=== PATIENT | female | born 1945 | race Caucasian/White ===

== ENCOUNTER → 2017-11-06 | Outpatient (CLI) | payer OTHER ==
[~2017-11-06] MED LIST: ALBUAER2 INH; AMR2 PO; ASPI81TA28 PO; ATEN-173 PO; ESTR1CRE PV; FURO-85 PO; GLCSR500 PO; GLIM4TAB PO; HYDR25TA5 PO; INSUINJ3 SC; INSUINJ34 SC; LATA0.5S OPB; LISI40TA PO; LORA0.5T12 PO; MONT1TAB5 PO; NITR0.4S UT; NRN100 PO; PLV75 PO; POLY150C12 PO; PRAM0.1212 PO; SITA100T3 PO
== END | disposition home or self-care (01) ==
LOC: C.LAB1850 13:24
PROVIDERS: ATTEND Nurse Practitioner Family
DX: E11.65 Type 2 diabetes mellitus with hyperglycemia (principal)

== ENCOUNTER → 2018-01-14 | Outpatient (CLI) | payer OTHER ==
[~2018-01-14] MED LIST changes: +ASCO1CAP3 PO; +CHOL1POW32 PO; +CLOP1TAB15 PO; +COEN1CAP28 PO; +CYAN500T PO; +DIGE1CAP10 PO; +FERR1TAB13 PO; +FLUT1INH7 INH; +KETOCONAZOLE 2% TOP; +LATA0.009 OP; +LISI-729 PO; +MAGN400T6 PO; +MBXC PO; +MULT-506 PO; +NVLGI7030 SC; +PROBCAP2 PO; +PYRI100T4 PO; +RANI150T3 PO; +TRIA1SPR10 NAE; +[UNRECOGNIZED DRUG - OTHER] PR
--- NOTE | 2018-01-14 15:42 | DIAGNOSTIC IMAGING REPORT ---
MRI OF THE BRAIN WITHOUT CONTRAST CLINICAL HISTORY: WORSENING TREMORS REST IS-LIKE SYNDROME COMPARISON STUDY: 07/12/2016 FINDINGS: Sagittal T1, axial diffusion, proton density and T2 weighted axial, coronal FLAIR, and axial T1-weighted images were acquired. No intra or extra-axial mass lesions are visualized Axial diffusion-weighted images reveal no evidence of acute or subacute infarction. There is no evidence of ventricular dilatation. Proton density T2-weighted and FLAIR images reveal scattered foci of increased T2 signal within the white matter, likely on a small vessel basis. 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 There is an old left cerebellar lacunar infarct. There are no abnormal flow voids. There is a focus of increased T2 signal within the right mastoid, likely on an inflammatory basis IMPRESSION: 1. No acute intracranial findings 2. No evidence of intracranial mass on this noncontrast study. 3. No evidence of acute or subacute infarction 4. Stable white matter disease and lacunar infarcts 5. Presumed small inflammatory focus within the right mastoid. Electronically signed by: Epifanio Coronel M.D. 01/14/2018 3:41 PM Dictated Date/Time: 01/14/2018 3:38 PM
== END | disposition home or self-care (01) ==
LOC: C.MRI 14:51
PROVIDERS: ATTEND Family Medicine
DX: G25.9 Extrapyramidal and movement disorder, unspecified (principal); R90.82 White matter disease, unspecified

== ENCOUNTER 2018-01-16 10:35 | Emergency (ER) | payer OTHER ==
[~2018-01-16] VITALS: Ht 147.3 cm; Wt 81.0 kg
[~2018-01-16 10:35] MED LIST changes: -ASCO1CAP3 PO; -CHOL1POW32 PO; -CLOP1TAB15 PO; -COEN1CAP28 PO; -CYAN500T PO; -DIGE1CAP10 PO; -FERR1TAB13 PO; -FLUT1INH7 INH; -KETOCONAZOLE 2% TOP; -LATA0.009 OP; -LISI-729 PO; -MAGN400T6 PO; -MBXC PO; -MULT-506 PO; -NVLGI7030 SC; -PROBCAP2 PO; -PYRI100T4 PO; -RANI150T3 PO; -TRIA1SPR10 NAE; -[UNRECOGNIZED DRUG - OTHER] PR
[2018-01-16 10:41] VITALS: TEMP 36.7; Ht 147.3 cm; Wt 81.0 kg
[2018-01-16] MEDS ORDERED: hydrOXYzine HCL 25 MG TAB PO STA (10:55)
--- NOTE | 2018-01-16 11:02 | EMERGENCY ROOM VISIT NOTE ---
History Report prepared by Wes: Kenneth Guerra Under the Supervision of: Dr. Alonso Arias D.O. First contact with patient: 10:46 Chief Complaint: LEG PAIN,LEG INJURY Stated Complaint: SHAKEY, RESTLESS LEG SYMDRONE History of Present Illness The patient is a 72 year old female who presents to the Emergency Room with complaints of worsening restless legs for the past few months. She states that last night she got up to make tea, and she felt so wobbly that she was going to collapse. The patient states that she has been falling out of her bed, chair, and sofa. The patient denies any back pain, chest pain, shortness of breath, nausea, and vomiting. She notes that she has been hyperventilating while shaking. The patient states that she has had an MRI of her head, and they did not find anything. She reports that she has taken Neurontin and Mirapex, and they initially were helping the symptoms, though she states that she stopped taking them since they were no longer helping. She also notes that she has taken lorazepam which has not helped. The patient notes that she has been getting minimal sleep due to the shaking. Source of History: patient Onset: a few months ago Position: leg Quality: other (shaking) Timing: worsening Associated Symptoms: No chest pain, No SOB, No nausea, No vomiting, No back pain Review of Systems See HPI for pertinent positives & negatives. A total of 10 systems reviewed and were otherwise negative. Past Medical & Surgical Medical Problems: (1) Anemia (2) CAD (coronary artery disease) (3) Restless leg syndrome Family History Patient reports no known family medical history. Social History Smoking Status: Never Smoker Drug Use: none Occupation Status: retired Current/Historical Medications Scheduled Ascorbic Acid (Vitamin C), 1 CAP PO HS Aspirin (Aspirin Ec), 81 MG PO 1400 Cholecalciferol (Bulk) (Vitamin D3), 4 CAP PO UD Clopidogrel (Plavix), 75 MG PO PM Coenzyme Q10 (Ubidecarenone) (Co Q10), 200 MG PO 1200 Cyanocobalamin (Vitamin B-12), 500 MCG PO 1200 Digestive Enzymes (Digestive Enzyme), 500 MG PO TID Fluticasone Furoate-Vilanterol (Breo Ellipta 200-25 Mcg/INH), 1 PUFF INH QAM Furosemide (Lasix), 20 MG PO HS Gabapentin (Gabapentin), 300 MG PO TID Insulin Aspart 70/30 (Novolog Mix 70/30), 46 UNIT SC BREAKFAST Insulin Aspart 70/30 (Novolog Mix 70/30), 50 UNIT SC SUPPER Latanoprost (Xalatan 0.005% Oph Sigrid), 1 DROP OPB QAM Lisinopril (Prinivil), 1.5 TABS PO QAM Magnesium Oxide (Mag-Ox), 400 MG PO BID Metformin HCl (Metformin HCl ER), 500 MG PO BID Montelukast Sodium (Montelukast Sodium), 1 TAB PO HS Multivitamin (Multivitamin), 1 TAB PO QAM Polysaccharide Iron Complex (Poly-Iron 150), 300 MG PO HS Pramipexole (Mirapex), 0.125 MG PO ACHS Probiotic Product (Florajen3), 1 CAP PO QAM Pyridoxine (Vitamin B6), 200 MG PO QAM [Premarin Vg Cm], 0.5 GM ID 2-3 TIMES PER WEEK Scheduled PRN Albuterol (Ventolin Hfa), 2 PUFFS INH Q4 PRN for Wheezing Lorazepam (Lorazepam), 0.5 MG PO DAILY PRN for Anxiety Triamcinolone Acetonide (Nasal (Nasal Allergy 24 Hour), 2 SPRAYS SHORTY DAILY PRN for Allergic Reaction [Ketoconazole 2% Cm], 1 APPLN TOP DAILY PRN for DRYNESS Allergies Coded Allergies: Cefaclor (Verified Allergy, Mild, RASH, 01/16/18) Dipyridamole (Verified Allergy, Mild, HIVES, 01/16/18) HEACHACHES Penicillins (Verified Allergy, Mild, RASH, 01/16/18) Primidone (Verified Allergy, Mild, RASH, 01/16/18) DIZZINESS Cetirizine (Verified Allergy, Unknown, Dizziness, 01/16/18) Simvastatin (Verified Allergy, Unknown, ANAPHYLAXIS, 01/16/18) Sulfa Antibiotics (Verified Allergy, Unknown, RASH, 01/16/18) Prednisone (Unverified Adverse Reaction, Intermediate, UNKNOWN, 01/16/18) Physical Exam Vital Signs Date Time Temp Pulse Resp B/P (MAP) Pulse Ox O2 Delivery O2 Flow Rate FiO2 01/16/18 14:25 89 20 165/82 99 01/16/18 13:58 89 24 151/68 99 Room Air 01/16/18 12:28 81 22 143/78 100 Room Air 01/16/18 12:17 76 01/16/18 10:41 36.7 87 20 139/77 98 Room Air Physical Exam GENERAL: Patient is awake, alert, and in no acute distress. Patient is anxious appearing EYES: The conjunctivae are clear. The pupils are round and reactive. EARS, NOSE, MOUTH AND THROAT: The nose is without any evidence of any deformity. Mucous membranes are moist tongue is midline NECK: The neck is nontender and supple. RESPIRATORY: Normal respiratory effort is noted there is no evidence of wheezing rhonchi or rales CARDIOVASCULAR: Regular rate and rhythm noted there no murmurs rubs or gallops normal S1 normal S2 GASTROINTESTINAL: The abdomen is soft. Bowel sounds are present in all quadrants. Abdomen is nontender BACK: No midline tenderness or or step-off noted range of motion in flexion extension as well as rotation no signs of muscle spasm noted MUSCULOSKELETAL/EXTREMITIES: There is no evidence of gross deformity full range of motion is noted in the hips and shoulders SKIN: There is no obvious evidence of any rash. There are no petechiae, pallor or cyanosis noted. NEUROLOGIC: Patient is awake alert and oriented x3 strength is symmetric patellar reflexes are 2+ bilaterally Medical Decision & Procedures Laboratory Results 01/16/18 11:45 Red Blood Count 4.04, Mean Corpuscular Volume 89.1, Mean Corpuscular Hemoglobin 30.2, Mean Corpuscular Hemoglobin Concent 33.9, Mean Platelet Volume 9.2, Neutrophils (%) (Auto) 69.6, Lymphocytes (%) (Auto) 20.2, Monocytes (%) (Auto) 8.7, Eosinophils (%) (Auto) 0.9, Basophils (%) (Auto) 0.3, Neutrophils # (Auto) 4.57, Lymphocytes # (Auto) 1.33, Monocytes # (Auto) 0.57, Eosinophils # (Auto) 0.06, Basophils # (Auto) 0.02 01/16/18 11:45 Test 01/16/18 11:27 01/16/18 11:45 Urine Color YELLOW Urine Appearance CLEAR (CLEAR) Urine pH 6.5 (4.5-7.5) Urine Specific [place] 1.018 (1.000-1.030) Urine Protein TRACE (NEG) Urine Glucose (UA) NEG (NEG) Urine Ketones NEG (NEG) Urine Occult Blood NEG (NEG) Urine Nitrite NEG (NEG) Urine Bilirubin NEG (NEG) Urine Urobilinogen NEG (NEG) Urine Leukocyte Esterase TRACE (NEG) Urine WBC (Auto) 1-5 /hpf (0-5) Urine RBC (Auto) 0-4 /hpf (0-4) Urine Hyaline Casts (Auto) 0 /lpf (0-5) Urine Epithelial Cells (Auto) >30 /lpf (0-5) Urine Bacteria (Auto) NEG (NEG) White Blood Count 6.57 K/uL (4.8-10.8) Red Blood Count 4.04 M/uL (4.2-5.4) Hemoglobin 12.2 g/dL (12.0-16.0) Hematocrit 36.0 % (37-47) Mean Corpuscular Volume 89.1 fL (80-100) Mean Corpuscular Hemoglobin 30.2 pg (25-34) Mean Corpuscular Hemoglobin Concent 33.9 g/dl (32-36) Platelet Count 222 K/uL (130-400) Mean Platelet Volume 9.2 fL (7.4-10.4) Neutrophils (%) (Auto) 69.6 % Lymphocytes (%) (Auto) 20.2 % Monocytes (%) (Auto) 8.7 % Eosinophils (%) (Auto) 0.9 % Basophils (%) (Auto) 0.3 % Neutrophils # (Auto) 4.57 K/uL (1.4-6.5) Lymphocytes # (Auto) 1.33 K/uL (1.2-3.4) Monocytes # (Auto) 0.57 K/uL (0.11-0.59) Eosinophils # (Auto) 0.06 K/uL (0-0.5) Basophils # (Auto) 0.02 K/uL (0-0.2) RDW Standard Deviation 46.7 fL (36.4-46.3) RDW Coefficient of Variation 14.2 % (11.5-14.5) Immature Granulocyte % (Auto) 0.3 % Immature Granulocyte # (Auto) 0.02 K/uL (0.00-0.02) Anion Gap 8.0 mmol/L (3-11) Est Creatinine Clear Calc Drug Dose 40.3 ml/min Estimated GFR () 55.4 Estimated GFR (Non- 47.8 BUN/Creatinine Ratio 30.6 (10-20) Calcium Level 9.6 mg/dl (8.5-10.1) Magnesium Level 2.1 mg/dl (1.8-2.4) Total Bilirubin 0.3 mg/dl (0.2-1) Direct Bilirubin < 0.1 mg/dl (0-0.2) Aspartate Amino Transf (AST/SGOT) 38 U/L (15-37) Alanine Aminotransferase (ALT/SGPT) 81 U/L (12-78) Alkaline Phosphatase 50 U/L (45-117) Total Protein 7.3 gm/dl (6.4-8.2) Albumin 4.2 gm/dl (3.4-5.0) Thyroid Stimulating Hormone (TSH) 1.340 uIu/ml (0.300-4.500) Laboratory results per my review. Medications Administered Medications (Trade) Dose Ordered Sig/Ryley Route Start Time Stop Time Status Last Admin Dose Admin Hydroxyzine HCl (Vistaril Tab) 25 mg NOW STAT PO 01/16/18 10:55 01/16/18 10:56 DC 01/16/18 11:06 25 MG ED Course 1046: The patient was evaluated in room B5. A complete history and physical examination were performed. 1055: Vistaril Tab 25mg PO 1409: Upon reevaluation, the patient is doing well. I discussed the results and treatment plan with her. She verbalized agreement of the treatment plan. She was discharged home. Medical Decision Differential diagnosis: Etiologies such as metabolic, infection, hypo/hyperglycemia, electrolyte abnormalities, cardiac sources, intracerebral event, toxicologic, neurologic, as well as others were entertained. Nursing notes reviewed. The patient is a 72-year-old female who has been suffering with restless legs for some months. She presented to the emergency department today because symptoms are worsening. The patient was treated with Vistaril in the emergency department. She was reevaluated multiple times. I discussed patient's laboratory results with her. I discussed her case with the emergency department lining caser. I recommended that she have her appointment moved up with neurology but they were unable to give her an earlier appointment. Neurology recommended that she follow-up with her primary care physician first. I discussed this with the patient. She was encouraged to continue all medications as prescribed. Currently she stopped taking her medications for restless legs. She is also encouraged to follow-up with her family doctor as well. Medication Reconcilliation Current Medication List: was personally reviewed by me Blood Pressure Screening Patient's blood pressure: Elevated blood pressure Blood pressure disposition: Elevated BP felt to be situational Impression Primary Impression: Restless legs Scribe Attestation The scribe's documentation has been prepared under my direction and personally reviewed by me in its entirety. I confirm that the note above accurately reflects all work, treatment, procedures, and medical decision making performed by me. Departure Information Dispostion Home / Self-Care Referrals Jayleen Reid D.O. (PCP) Forms HOME CARE DOCUMENTATION FORM, IMPORTANT VISIT INFORMATION Patient Instructions My [facility], Restless Legs Syndrome What Do Additional Instructions Continue all medications as prescribed. Rest and avoid any strenuous activity. Follow-up with the neurologist as scheduled. Return to the emergency department if symptoms worsen. Consider following up with your family doctor
[2018-01-16] MEDS ORDERED: CLOP1TAB15 PO (11:17)
[2018-01-16] MEDS ORDERED: LISI-729 PO (11:17)
[2018-01-16] MEDS ORDERED: COEN1CAP28 PO (11:18)
[2018-01-16] MEDS ORDERED: FERR1TAB13 PO (11:40)
[2018-01-16] MEDS ORDERED: FLUT1INH7 INH (11:40)
[2018-01-16] MEDS ORDERED: CHOL1POW32 PO (11:40)
[2018-01-16] MEDS ORDERED: RANI150T3 PO (11:40)
[2018-01-16] MEDS ORDERED: LATA0.009 OP (11:40)
[2018-01-16] MEDS ORDERED: CYAN500T PO (11:40)
[2018-01-16] MEDS ORDERED: PYRI100T4 PO (11:40)
[2018-01-16] MEDS ORDERED: NVLGI7030 SC ×2 (11:40)
[2018-01-16] MEDS ORDERED: TRIA1SPR10 NAE (11:40)
[2018-01-16] MEDS ORDERED: KETOCONAZOLE 2% TOP (11:40)
[2018-01-16] MEDS ORDERED: [UNRECOGNIZED DRUG - OTHER] PR (11:40)
[2018-01-16] MEDS ORDERED: ASCO1CAP3 PO (11:40)
[2018-01-16] MEDS ORDERED: MBXC PO (11:40)
[2018-01-16] MEDS ORDERED: DIGE1CAP10 PO (11:40)
[2018-01-16] MEDS ORDERED: MULT-506 PO (11:54)
[2018-01-16] MEDS ORDERED: PROBCAP2 PO (11:54)
[2018-01-16 11:56] LABS: BASO % 0.3 %; BASO ABS # 0.02 K/uL (0-0.2); EOS % 0.9 %; EOS ABS # 0.06 K/uL (0-0.5); HEMOGLOBIN 12.2 g/dL (12.0-16.0); IG# 0.02 K/uL (0.00-0.02); LYMPH % 20.2 %; LYMPH ABS # 1.33 K/uL (1.2-3.4); MEAN CELL VOLUME 89.1 fL (80-100); MEAN CORPUSCULAR HEMOGLOBIN 30.2 pg (25-34); MEAN CORPUSCULAR HGB CONC 33.9 g/dl (32-36); MEAN PLATELET VOLUME 9.2 fL (7.4-10.4); MONO % 8.7 %; MONO ABS # 0.57 K/uL (0.11-0.59); NEUT % 69.6 %; NEUT ABS # 4.57 K/uL (1.4-6.5); PLATELET COUNT 222 K/uL (130-400); RED CELL DISTRIBUTION WIDTH CV 14.2 % (11.5-14.5); RED CELL DISTRIBUTION WIDTH SD 46.7 fL (36.4-46.3); WHITE BLOOD COUNT 6.57 K/uL (4.8-10.8)
[2018-01-16 12:10] LABS: ALBUMIN 4.2 gm/dl (3.4-5.0); ALT/SGPT 81 U/L (12-78); AST/SGOT 38 U/L (15-37); BLOOD UREA NITROGEN 35 mg/dl (7-18); CALCIUM 9.6 mg/dl (8.5-10.1); CARBON DIOXIDE 24 mmol/L (21-32); CREATININE 1.15 mg/dl (0.60-1.20); GLUCOSE 94 mg/dl (70-99); POTASSIUM 4.2 mmol/L (3.5-5.1); SODIUM 139 mmol/L (136-145)
[2018-01-16] MEDS ORDERED: MAGN400T6 PO (12:12)
[2018-01-16 12:20] LABS: ALKALINE PHOSPHATASE 50 U/L (45-117); TOTAL PROTEIN 7.3 gm/dl (6.4-8.2)
[2018-01-16 14:25] VITALS: BP 165/82; PULSE 89; O2SAT 99
== END 2018-01-16 14:30 | disposition home or self-care (01) ==
LOC: C.EDB 10:38
DX: G25.81 Restless legs syndrome (principal); D64.9 Anemia, unspecified; I25.10 Atherosclerotic heart disease of native coronary artery without angina pectoris; Z79.82 Long term (current) use of aspirin; Z79.899 Other long term (current) drug therapy; Z79.01 Long term (current) use of anticoagulants; Z88.0 Allergy status to penicillin; Z88.2 Allergy status to sulfonamides; Z88.8 Allergy status to other drugs, medicaments and biological substances; Z88.1 Allergy status to other antibiotic agents

== ENCOUNTER → 2018-01-27 | Outpatient (CLI) | payer OTHER ==
[~2018-01-27] MED LIST changes: -AMR2 PO; +ASCO1CAP3 PO; -ATEN-173 PO; +CHOL1POW32 PO; +CLOP1TAB15 PO; +COEN1CAP28 PO; +CYAN500T PO; +DIGE1CAP10 PO; -ESTR1CRE PV; +FLUT1INH7 INH; -GLIM4TAB PO; -HYDR25TA5 PO; -INSUINJ3 SC; -INSUINJ34 SC; +KETOCONAZOLE 2% TOP; +LISI-729 PO; -LISI40TA PO; +MAGN400T6 PO; +MULT-506 PO; -NITR0.4S UT; +NVLGI7030 SC; -PLV75 PO; +PROBCAP2 PO; +PYRI100T4 PO; -SITA100T3 PO; +TRIA1SPR10 NAE; +[UNRECOGNIZED DRUG - OTHER] PR
[2018-01-27 13:13] LABS: BASO % 0.4 %; BASO ABS # 0.03 K/uL (0-0.2); EOS ABS # 0.07 K/uL (0-0.5); HEMATOCRIT 34.9 % (37-47); HEMOGLOBIN 11.8 g/dL (12.0-16.0); IG# 0.02 K/uL (0.00-0.02); LYMPH ABS # 1.49 K/uL (1.2-3.4); MEAN CORPUSCULAR HEMOGLOBIN 30.1 pg (25-34); MEAN CORPUSCULAR HGB CONC 33.8 g/dl (32-36); MEAN PLATELET VOLUME 9.3 fL (7.4-10.4); MONO % 5.8 %; MONO ABS # 0.41 K/uL (0.11-0.59); NEUT % 71.5 %; NEUT ABS # 5.08 K/uL (1.4-6.5); PLATELET COUNT 281 K/uL (130-400); RED CELL DISTRIBUTION WIDTH CV 14.2 % (11.5-14.5); RED CELL DISTRIBUTION WIDTH SD 46.4 fL (36.4-46.3)
[2018-01-27 13:56] LABS: ALT/SGPT 68 U/L (12-78); AST/SGOT 31 U/L (15-37); BLOOD UREA NITROGEN 37 mg/dl (7-18); CALCIUM 9.2 mg/dl (8.5-10.1); CARBON DIOXIDE 23 mmol/L (21-32); CREATININE 1.25 mg/dl (0.60-1.20); GLUCOSE 108 mg/dl (70-99); SODIUM 141 mmol/L (136-145)
[2018-01-27 14:00] LABS: ALKALINE PHOSPHATASE 56 U/L (45-117); TOTAL PROTEIN 7.3 gm/dl (6.4-8.2)
== END | disposition home or self-care (01) ==
LOC: C.LAB1850 11:44
PROVIDERS: ATTEND Physician Assistant
DX: R25.1 Tremor, unspecified (principal); R26.9 Unspecified abnormalities of gait and mobility; R20.2 Paresthesia of skin; G25.81 Restless legs syndrome; D64.9 Anemia, unspecified

== ENCOUNTER → 2018-04-22 | Outpatient (CLI) | payer OTHER ==
--- NOTE | 2018-04-22 12:49 | DIAGNOSTIC IMAGING REPORT ---
LUMBAR SPINE W/O CONTRAST HISTORY: Pain. Neuropathy. M54.5 TECHNIQUE: Multiplanar multisequence MRI of the lumbar spine was performed without the use of contrast. COMPARISON: None. FINDINGS: For the purpose of the report the L5-S1 disc space will be located on axial image 27 of 30. Moderate degenerative disc changes throughout. L1-L2: No significant central canal or neural foraminal narrowing. L2-L3: No significant central canal or neural foraminal narrowing. L3-L4: Moderate multifactorial narrowing of spinal canal. Mild broad-based disc herniation. Moderate narrowing of the neuroforamina bilaterally. L4-L5: Mild multifactorial narrowing of spinal canal. Mild narrowing neuroforamina bilaterally. L5-S1: No significant central canal or neural foraminal narrowing. IMPRESSION: 1. Moderate multifactorial narrowing of the spinal canal and neural foramina at L3-L4. 2. Mild multifactorial narrowing of the spinal canal at L4-L5. The above report was generated using voice recognition software. It may contain grammatical, syntax or spelling errors. Electronically signed by: Andres Mijares M.D. 04/22/2018 11:30 AM Dictated Date/Time: 04/22/2018 11:17 AM
--- NOTE | 2018-04-22 14:12 | DIAGNOSTIC IMAGING REPORT ---
L-SPINE MIN 4 VIEWS ROUTINE CLINICAL HISTORY: Low back pain COMPARISON STUDY: No previous studies for comparison. FINDINGS: No fractures are visualized. There are no erosive or destructive changes. There are degenerative changes with disc space narrowing most pronounced at the L3-4 and L4-5 levels. There is lower lumbar facet joint arthropathy. IMPRESSION: 1. Degenerative change 2. No fractures subluxations or destructive lesions are visualized. Electronically signed by: Epifanio Coronel M.D. 04/22/2018 11:00 AM Dictated Date/Time: 04/22/2018 10:59 AM
== END | disposition home or self-care (01) ==
LOC: C.MRIBC 09:56
PROVIDERS: ATTEND Psychiatry & Neurology Neurology
DX: M54.5 Low back pain (principal); M99.73 Connective tissue and disc stenosis of intervertebral foramina of lumbar region

== ENCOUNTER 2019-05-18 04:48 | Inpatient (IN) ==
--- NOTE | 2019-05-03 08:48 | History & Physical Report ---
Date of Service May 03, 2019 date of surgery: 05-18-19 Assessment & Plan (1) Osteoarthritis of left knee: Risks and benefits of procedure discussed in detail today, patient would like to proceed with a Left total knee replacement at [facility] as scheduled. will obtain medical clearance from Dr Reid and cardiac clearance from Dr Torres prior to surgery as well as obtain PATs at [facility]. Will resume the ASA 81mg po bid and Plavix post-op. f/u 2 weeks post op for routine post-operative care and x-ray, sooner if having any problems. will make arrangements for HHPT at the time of discharge. At this point in time, has failed conservative measures and would like to proceed with surgical intervention. History of Present Illness Chief Complaint: left knee pain Primary Care Provider: Jayleen Reid DO Ms Bella is a 73 year old female who complains of left knee pain, presents for pre-op evaluation prior to a left total knee replacement at [facility] on 05-18-19. She presents with pain, crepitus, decreased rom and stiffness on the left side. She states that the symptoms have been chronic non-traumatic and the pain occurs constantly with intermittent worsening. Currently the patient states that the symptoms are moderate-severe. The pain is described as aching, sharp and throbbing. The symptoms occur continuously. The symptoms are aggravated by daily activities, ascending stairs, descending stairs, first steps while awake, weight bearing and walking. Grace states that the symptoms are relieved by no specific activity. In addition to left knee pain the patient is also experiencing crepitus, decreased mobility, joint pain, instability, limping, loss of motion, pain after activity and stiffness. Prior pain medications include Tylenol. Pt. is on Plavix and ASA therapy which limits her NSAID use. She has been treated with Pt. has had Visco in the past with minimal relief on the left side. She has had Pt. ambulates with a cane. Patient has had previous therapy. Allergies Allergy/AdvReac Type Severity Reaction Status Date / Time cefaclor Allergy Mild RASH Verified 04/21/19 15:32 dipyridamole Allergy Mild HIVES Verified 04/21/19 15:32 Penicillins Allergy Mild RASH Verified 04/21/19 15:32 primidone Allergy Mild RASH Verified 04/21/19 15:32 cetirizine Allergy Unknown Dizziness Verified 04/21/19 15:32 Cipro Allergy Unknown Joint pain Unverified 05/20/18 10:49 ciprofloxacin Allergy Unknown Joint pain Verified 04/21/19 15:32 simvastatin Allergy Unknown ANAPHYLAXIS Verified 04/21/19 15:32 Sulfa (Sulfonamide Allergy Unknown RASH Verified 04/21/19 15:32 Antibiotics) prednisone AdvReac Intermediate UNSURE IF Verified 04/21/19 15:32 IT AFFECTED BREATHING OR HEART Home Medications Home Medications Medication Instructions Recorded Confirmed Type albuterol sulfate HFA 90 2 puffs INH Q6H PRN 08/17/18 04/21/19 History mcg/actuation aerosol inhaler ascorbic acid (vitamin C) 500 mg 500 mg PO QPM cap 08/17/18 04/21/19 History capsule aspirin 81 mg tablet,delayed 81 mg PO QDL 08/17/18 04/21/19 History release cholecalciferol (vitamin D3) 1,000 1,000 units PO DAILY 08/17/18 04/21/19 History unit capsule clopidogrel 75 mg tablet 75 mg PO QDD 08/17/18 04/21/19 History conjugated estrogens 0.625 mg/gram 1 applic VAGINAL DAILY PRN gm 08/17/18 04/21/19 History vaginal cream digestive enzymes capsule 1 cap PO QAM 08/17/18 04/21/19 History furosemide 20 mg tablet 20 mg PO QDD 08/17/18 04/21/19 History ketoconazole 2 % topical cream 1 appln TOP DAILY PRN 08/17/18 04/21/19 History latanoprost 0.005 % eye drops 1 drops OP QAM 08/17/18 04/21/19 History lisinopril 5 mg tablet 7.5 mg PO QAM 08/17/18 04/21/19 History lorazepam 0.5 mg tablet 0.5 mg PO DAILY PRN 08/17/18 04/21/19 History magnesium 400 mg (as magnesium 400 mg PO BID cap 08/17/18 04/21/19 History oxide) capsule metformin 500 mg tablet 500 mg PO BID 08/17/18 04/21/19 History montelukast 10 mg tablet 10 mg PO QPM 08/17/18 04/21/19 History multivitamin tablet 1 tab PO QAM 08/17/18 04/21/19 History novolog V-Go system 1 dose SC DIRECTED PRN 08/17/18 04/21/19 History coQ10 (ubiquinol) 200 mg PO QDL 04/21/19 04/21/19 History insulin aspart U-100 [Novolog 1 sliding scale dose SUBCUT 04/21/19 04/21/19 History U-100 Insulin aspart] USEASDIRECTD PRN ipratropium bromide 0.5 mg INHALATION Q6H PRN 04/21/19 04/21/19 History nitroglycerin 0.4 mg SUBLINGUAL DIRECTED 04/21/19 04/21/19 History polysaccharide iron complex 300 mg PO HS 04/21/19 04/21/19 History [Poly-Iron] triamcinolone acetonide [Nasacort] 2 spray INTRANASAL QAM 04/21/19 04/21/19 History pramipexole 1 mg tablet 1 mg PO BID 30 Days #60 tab 04/30/19 Rx Past Med/Surg History Medical History Anemia (Chronic ~09/2007) Asthma (Chronic) Chronic kidney disease (Chronic) Coronary artery disease (Chronic) s/p multiple PCIs with BMS (pt "feels she would have an allergy to JAKE" per cardiology). s/p CABG 2015 (GALINDO-LAD, SVG-OM2, SVG-RCA) GERD (gastroesophageal reflux disease) (Chronic) Glaucoma (Chronic) Hypercholesterolemia (Chronic) Hypertension (Chronic) Restless leg syndrome (Chronic) Bee sting allergy WASP Chronic diastolic CHF (congestive heart failure) Diabetes mellitus, type 2 IDDM LBBB (left bundle branch block) or wide IVCD per cardio. Surgical History History of cholecystectomy (Chronic) History of hysterectomy (Chronic) History of lumpectomy of left breast (Chronic) Hx of CABG (Chronic) 2016 [facility] X 3 VESSELS History of cardiac cath 2004 AND 2005 - [facility] X3 TOTAL STENTS; 2014 [facility] X3 STENTS Hx of section Hx of left cataract extraction Hx of right cataract extraction Social History Preferred Language: Israeli Communication Ability: Effective Beliefs That Will Affect Care: None Current Living Situation: Spouse current occupational status: retired Feels Safe at Home: Yes Smoking Status: Never smoker Do You Dip or Chew Tobacco: No ; Second Hand Exposure: Yes (SOCIALLY) ; Hx Alcohol Use: No Hx Substance Use: No Review of Systems Review of Systems: All systems reviewed & are unremarkable except as noted in HPI & below Constitutional: no fever, no chills and no sweats Respiratory: no cough and no dyspnea Cardiovascular: no chest pain, no dyspnea and no orthopnea Gastrointestinal: no abdominal pain, no nausea and no vomiting Musculoskeletal: as per Subjective / HPI Physical Exam Physical Exam: Ht: 4ft 9in Wt: 80.29kg BP: 150/74 Pulse: 72 Constitutional: WD/WN, vitals as above no acute distress Respiratory: normal respiratory effort, lungs clear to auscultation no respiratory distress, no labored breathing and does not use accessory muscles Cardiovascular: RRR, no murmur, no edema Gastrointestinal (Abdomen): normal bowel sounds, soft, nontender, no hepatosplenomegaly Musculoskeletal: Left Knee Physical Exam: She ambulates with a limp, there is no erythema, warmth, ecchymosis or atrophy noted, +1 effusion, greatest tenderness over the medial joint line and anterior knee joint. negative patellar apprehension , mild crepitation with motion, rick's negative, posterior drawer negative. positive mcmurrays medially, negative anterior drawer, knee stable with valgus/varus stress. no extensor lag. pain with active range of motion, AROM 0/5/105, Passive ROM 0/3/115. No pain with active/passive ROM of ankle. Lower Extremity Strength normal. Lower Extremity Neuro-vascular is normal Results & Data Diagnostic Findings Left Knee X-ray from 04/19/19 confirms degenerative changes to the left knee, with narrowing of the medial and patellofemoral joint, showing joint space narrowing, osteophyte formation and subchondral sclerosis. no acute bony pathology noted.
--- NOTE | 2019-05-03 09:00 | PAT Medication Instructions ---
Medication Instructions Date of Service May 03, 2019 Home Medications Medication Instructions Recorded pramipexole 1 mg tablet 1 mg PO BID 30 Days #60 tab 04/30/19 albuterol sulfate HFA 90 mcg/actuation aerosol inhaler 2 puffs INH Q6H PRN ascorbic acid (vitamin C) 500 mg capsule 500 mg PO QPM aspirin 81 mg tablet,delayed release 81 mg PO QDL cholecalciferol (vitamin D3) 1,000 unit capsule 1,000 units PO DAILY clopidogrel 75 mg tablet 75 mg PO QDD conjugated estrogens 0.625 mg/gram vaginal cream 1 applic VAGINAL DAILY PRN digestive enzymes capsule 1 cap PO QAM furosemide 20 mg tablet 20 mg PO QDD ketoconazole 2 % topical cream 1 appln TOP DAILY PRN latanoprost 0.005 % eye drops 1 drops OP QAM lisinopril 5 mg tablet 7.5 mg PO QAM lorazepam 0.5 mg tablet 0.5 mg PO DAILY PRN magnesium 400 mg (as magnesium oxide) capsule 400 mg PO BID metformin 500 mg tablet 500 mg PO BID montelukast 10 mg tablet 10 mg PO QPM multivitamin tablet 1 tab PO QAM novolog V-Go system 1 dose SC DIRECTED PRN coQ10 (ubiquinol) 200 mg PO QDL [Novolog U-100 Insulin aspart] 1 sliding scale dose SUBCUT USEASDIRECTD PRN ipratropium bromide 0.5 mg INHALATION Q6H PRN nitroglycerin 0.4 mg SUBLINGUAL DIRECTED polysaccharide iron complex [Poly-Iron] 300 mg PO HS triamcinolone acetonide [Nasacort] 2 spray INTRANASAL QAM pramipexole 1 mg tablet 1 mg PO BID ASK your prescriber and surgeon clopidogrel 75 mg tablet 75 mg PO QDD *MUST BE HELD FOR AT LEAST 7 DAYS FOR SPINAL ANESTHESIA (PREFERRED) STOP taking 2 weeks before surgery coQ10 (ubiquinol) 200 mg PO QDL STOP taking 24 hours before surgery conjugated estrogens 0.625 mg/gram vaginal cream 1 applic VAGINAL DAILY PRN ketoconazole 2 % topical cream 1 appln TOP DAILY PRN pramipexole 1 mg tablet 1 mg PO BID DO NOT take the morning of surgery cholecalciferol (vitamin D3) 1,000 unit capsule 1,000 units PO DAILY digestive enzymes capsule 1 cap PO QAM magnesium 400 mg (as magnesium oxide) capsule 400 mg PO BID metformin 500 mg tablet 500 mg PO BID multivitamin tablet 1 tab PO QAM [Novolog U-100 Insulin aspart] 1 sliding scale dose SUBCUT USEASDIRECTD PRN -- DO NOT BOLUS Take morning of surgery With a small sip of water, OTHERWISE NOTHING TO EAT OR DRINK AFTER MIDNIGHT: albuterol sulfate HFA 90 mcg/actuation aerosol inhaler 2 puffs INH Q6H PRN (if needed, and bring with you to the hospital) aspirin 81 mg tablet,delayed release 81 mg PO QDL latanoprost 0.005 % eye drops 1 drops OP QAM lorazepam 0.5 mg tablet 0.5 mg PO DAILY PRN (if needed) ipratropium bromide 0.5 mg INHALATION Q6H PRN (if needed) nitroglycerin 0.4 mg SUBLINGUAL DIRECTED (if needed) triamcinolone acetonide [Nasacort] 2 spray INTRANASAL QAM *CONTINUE INSULIN PUMP AT BASAL RATE AND DO NOT BOLUS* Take evening before surgery albuterol sulfate HFA 90 mcg/actuation aerosol inhaler 2 puffs INH Q6H PRN (if needed) ascorbic acid (vitamin C) 500 mg capsule 500 mg PO QPM clopidogrel 75 mg tablet 75 mg PO QDD furosemide 20 mg tablet 20 mg PO QDD lorazepam 0.5 mg tablet 0.5 mg PO DAILY PRN (if needed) magnesium 400 mg (as magnesium oxide) capsule 400 mg PO BID metformin 500 mg tablet 500 mg PO BID montelukast 10 mg tablet 10 mg PO QPM novolog V-Go system 1 dose SC DIRECTED PRN (continue at basal rate) [Novolog U-100 Insulin aspart] 1 sliding scale dose (if needed) ipratropium bromide 0.5 mg INHALATION Q6H PRN (if needed) nitroglycerin 0.4 mg SUBLINGUAL DIRECTED (if needed) polysaccharide iron complex [Poly-Iron] 300 mg PO HS Other Notes If you have any questions please call us at [phone] or [phone] or [phone] or [phone]
--- NOTE | 2019-05-03 12:36 | Anesthesiology Consultation ---
Date of Service May 03, 2019 Assessment & Plan (1) Encounter for pre-operative examination: CARDIO CLEARANCE (MARY 05/11) = "she is stable and asymptomatic from a coronary artery disease standpoint. I see no cardiac contraindication for total knee arthroplasty. She has discontinued her Plavix and I think she can stay off this medication permanently." PCP CLEARANCE 04/22 = "she is a moderate risk for the proposed left knee replacement due to her diabetes, history of CABG, obesity, and COPD." CHECK BSG AM DOS Chart Review Chart Review: Acceptable Risk for Surgery and Patient seen in Pre Admission Testing Teaching & Discussion Instructed NPO after midnight before surgery, except medications with 15 cc of water. Medication instructions provided according to the PAT guidelines. Plavix instructions per surgeon and cardiology, pt made aware must be held x 7 days for spinal anesthesia. History Surgery Operation Date: 05/18/19 07:15 Proposed Procedures p Left Total Knee Arthroplasty - Saul Hull DO Height/Weight Height: 4 ft 9 in Weight: 82.8 kg Allergies Allergy/AdvReac Type Severity Reaction Status Date / Time cefaclor Allergy Mild RASH Verified 04/21/19 15:32 dipyridamole Allergy Mild HIVES Verified 04/21/19 15:32 Penicillins Allergy Mild RASH Verified 04/21/19 15:32 primidone Allergy Mild RASH Verified 04/21/19 15:32 Cipro Allergy Unknown Joint pain Unverified 05/20/18 10:49 simvastatin Allergy Unknown ANAPHYLAXIS Verified 04/21/19 15:32 Sulfa (Sulfonamide Allergy Unknown RASH Verified 04/21/19 15:32 Antibiotics) prednisone AdvReac Intermediate UNSURE IF Verified 04/21/19 15:32 IT AFFECTED BREATHING OR HEART cetirizine AdvReac Unknown Dizziness Verified 05/05/19 09:19 ciprofloxacin AdvReac Unknown Joint pain Verified 05/05/19 09:19 Medications Home Medications Medication Instructions Recorded Confirmed Last Taken albuterol sulfate HFA 90 2 puffs INH Q6H PRN 08/17/18 04/21/19 Unknown mcg/actuation aerosol inhaler ascorbic acid (vitamin C) 500 mg 500 mg PO QPM cap 08/17/18 04/21/19 Unknown capsule aspirin 81 mg tablet,delayed 81 mg PO QDL 08/17/18 04/21/19 Unknown release cholecalciferol (vitamin D3) 1,000 5,000 units PO DAILY 08/17/18 05/05/19 Unknown unit capsule clopidogrel 75 mg tablet 75 mg PO QDD 08/17/18 04/21/19 Unknown conjugated estrogens 0.625 mg/gram 1 applic VAGINAL DAILY PRN gm 08/17/18 04/21/19 Unknown vaginal cream digestive enzymes capsule 1 cap PO QAM 08/17/18 04/21/19 Unknown furosemide 20 mg tablet 20 mg PO QDD 08/17/18 04/21/19 Unknown ketoconazole 2 % topical cream 1 appln TOP DAILY PRN 08/17/18 04/21/19 Unknown latanoprost 0.005 % eye drops 1 drops OP QAM 08/17/18 04/21/19 Unknown lisinopril 5 mg tablet 7.5 mg PO QAM 08/17/18 04/21/19 Unknown lorazepam 0.5 mg tablet 0.5 mg PO DAILY PRN 08/17/18 04/21/19 Unknown magnesium 400 mg (as magnesium 400 mg PO BID cap 08/17/18 04/21/19 Unknown oxide) capsule metformin 500 mg tablet 500 mg PO BID 08/17/18 04/21/19 Unknown montelukast 10 mg tablet 10 mg PO QPM 08/17/18 04/21/19 Unknown multivitamin tablet 1 tab PO QAM 08/17/18 04/21/19 Unknown novolog V-Go system 1 dose SC DIRECTED PRN 08/17/18 04/21/19 Unknown coQ10 (ubiquinol) 200 mg PO QDL 04/21/19 04/21/19 Unknown insulin aspart U-100 [Novolog 1 sliding scale dose SUBCUT 04/21/19 04/21/19 Unknown U-100 Insulin aspart] USEASDIRECTD PRN ipratropium bromide 0.5 mg INHALATION Q6H PRN 04/21/19 04/21/19 Unknown nitroglycerin 0.4 mg SUBLINGUAL DIRECTED 04/21/19 04/21/19 Unknown polysaccharide iron complex 300 mg PO HS 04/21/19 04/21/19 Unknown [Poly-Iron] triamcinolone acetonide [Nasacort] 2 spray INTRANASAL QAM 04/21/19 04/21/19 Unknown pramipexole 2 mg PO BID 05/10/19 Unknown Past Medical History Medical History Anemia (Chronic ~09/2007) Asthma (Chronic) Chronic kidney disease (Chronic) Coronary artery disease (Chronic) s/p multiple PCIs with BMS (pt "feels she would have an allergy to JAKE" per cardiology). s/p CABG 2015 (GALINDO-LAD, SVG-OM2, SVG-RCA) GERD (gastroesophageal reflux disease) (Chronic) Glaucoma (Chronic) Hypercholesterolemia (Chronic) Hypertension (Chronic) Restless leg syndrome (Chronic) Bee sting allergy WASP Chronic diastolic CHF (congestive heart failure) Diabetes mellitus, type 2 IDDM -- uses VGo insulin pump at basal rate, boluses as needed for meals. Also had CGM on upper arm. LBBB (left bundle branch block) or wide IVCD per cardio. Obesity Exercise / Class Metabolic Activity III < 4 Walking/Shop/Light housework (Using cane for ambulation, limited by knee pain and back pain, no CP or SOB with ambulation but activity is limited.) Past Surgical History Surgical History History of cholecystectomy (Chronic) History of hysterectomy (Chronic) History of lumpectomy of left breast (Chronic) Hx of CABG (Chronic) 2016 S X 3 VESSELS History of cardiac cath 2004 AND 2005 - [facility] X3 TOTAL STENTS; 2014 [facility] X3 STENTS Hx of section Hx of left cataract extraction Hx of right cataract extraction Past Anesthesia History No Hx of Anesthesia Complications and No Family Hx of Anesthesia Complications History of PONV No Hx of PONV and No Hx of Motion Sickness Social History Smoking Status: Never smoker Do You Dip or Chew Tobacco: No Hx Alcohol Use: No Hx Substance Use: No Review of Systems Pt denies any recent chest pain, shortness of breath, cough, fever or URI. +Seasonal allergies/rhinitis with reflexive dry chronic cough, +occasional heart palpitations, chronic. Physical Exam Vital Signs BP: 120/64 P: 64bpm SPO2: 99% RA T: 98.0 F R: 20 Constitutional + obese ENMT Mouth: + dental restorations (gold crowns on many molars); no chipped teeth and no loose teeth Thyromental Distance: > or= 3.5 Finger Breadths (3.5) Mallampati Class: II Neck + short neck; neck extension not limited (but some pain with full extension) Respiratory normal respiratory effort Auscultation: lungs clear to auscultation bilaterally Cardiovascular Rate/Rhythm: regular rate and regular rhythm Heart Sounds: no murmur Vessels: no carotid bruit Extremities: + edema (B/L, wearing compression stockings) Testing Laboratory Results PT 9.6 Seconds (9.0-12.0) 05/03/19 12:44 INR 0.9 (0.9-1.1) 05/03/19 12:44 APTT 26.2 Seconds (21.0-31.0) 05/03/19 12:44 Urine Color Yellow 05/03/19 12:44 Urine Appearance Clear (Clear) 05/03/19 12:44 Urine pH 5.0 (4.5-7.5) 05/03/19 12:44 Ur Specific [place] 1.021 (1.000-1.030) 05/03/19 12:44 Urine Protein Negative (Negative) 05/03/19 12:44 Urine Glucose (UA) Negative (Negative) 05/03/19 12:44 Urine Ketones Negative (Negative) 05/03/19 12:44 Urine Nitrite Negative (Negative) 05/03/19 12:44 Ur Leukocyte Esterase Negative (Negative) 05/03/19 12:44 Blood Type O Positive 05/03/19 12:44 Antibody Screen NEGATIVE 05/03/19 12:44 04/08/19 WBC: 6.40 H/H: 11.7/37.1 PLATELETS: 265 SODIUM: 143 POTASSIUM: 4.6 CHLORIDE: 102 CO2: 25 BUN: 32 CREATININE: 1.1 GLUCOSE: 175 Electrocardiogram Date: 05/03/19 Sinus rhythm at 75 bpm with occasional PVCs. Right axis deviation. Nonspecific intraventricular conduction block. Compared with EKG of 12/11/2015, PVCs are now present, questionable change in QRS axis, nonspecific T wave ab normality, worse in inferior leads, T wave inversion less evident in anterolateral leads.
[2019-05-03 13:40] LABS: Appearance Urine Clear (Clear); Bilirubin Urine Negative (Negative); Blood Urine Negative (Negative); Color Urine Yellow; Glucose Urine UA Negative (Negative); Ketones Urine Negative (Negative); Leukocyte Esterase Urine Negative (Negative); Nitrite Urine Negative (Negative); Protein Urine Negative (Negative); Specific Gravity Urine 1.021 (1.000-1.030); Urobilinogen Urine Negative (Negative)
[2019-05-03 13:53] LABS: INR 0.9 (0.9-1.1); Partial Thromboplastin Time 26.2 Seconds (21.0-31.0); Prothrombin Time 9.6 Seconds (9.0-12.0)
[2019-05-18] MEDS ORDERED: LR 500ML BOLUS, THEN 15ML/HR IV SCH (06:00)
[2019-05-18] MEDS ORDERED: GABAPENTIN 300 MG CAP PO SCH (06:00)
[2019-05-18] MEDS ORDERED: FAMOTIDINE 20 MG TAB PO SCH (06:00)
[2019-05-18] MEDS ORDERED: ROPIVACAINE 0.5% HCL/PF 150 MG, BUPIVACAINE 0.5% MPF 30 ML, EPINEPHrine 30MG/30ML (OR U... INSTIL SCH (06:00)
[2019-05-18] MEDS ORDERED: CLINDAMYCIN 600 MG/54 ML BAG IV SCH (06:00)
[2019-05-18] MEDS ORDERED: METOCLOPRAMIDE HCL 10 MG TABLET PO SCH (06:00)
[2019-05-18] MEDS ORDERED: dexAMETHasone 4 MG TAB PO SCH (06:00)
[2019-05-18] MEDS ORDERED: ACETAMINOPHEN 500 MG TAB PO SCH (06:00)
[2019-05-18] MEDS ORDERED: BUPIVACAINE 0.5 % 5 MG/1 ML PF 10ML VIAL ONE (06:25)
[2019-05-18] MEDS ORDERED: EPINEPHrine INJ 1 MG/ML AMP ONE (06:26)
[2019-05-18] MEDS ORDERED: ROPIVACAINE 0.5% 5 MG/ML 30 ML VIAL ONE (06:26)
[2019-05-18] MEDS ORDERED: LIDOCAINE HCL 2% 2 ML VIAL/AMP(20MG/ML) INFIL ONE (06:59)
[2019-05-18] MEDS ORDERED: DEXAMETHASONE SOD INJ 4 MG/ML VIAL ONE (06:59)
[2019-05-18] MEDS ORDERED: ONDANSETRON INJ 2 MG/ML 2 ML VIAL ONE (06:59)
[2019-05-18] MEDS ORDERED: PROPOFOL IV EMULSION 10 MG/ML 20 ML VIAL IV ONE ×3 (06:59→08:19)
[2019-05-18] MEDS ORDERED: fentaNYL citrate 100 MCG/2 ML VIAL ONE (06:59)
[2019-05-18] MEDS ORDERED: MIDAZOLAM HCL 1 MG/ML 2ML VIAL ONE ×2 (06:59→07:39)
[2019-05-18] MEDS ORDERED: ORTHO JOINT ANESTHETIC ONE (07:01)
[2019-05-18] MEDS ORDERED: BACITRACIN INJ 50,000 UNIT VIAL ONE (07:01)
--- NOTE | 2019-05-18 07:15 | History & Physical Bridge Note ---
Date of Service May 18, 2019 History & Physical Bridge Note I have examined the patient, reviewed the History & Physical and in the interval since the performance of the History & Physical I have noted the following changes of clinical significance: no changes noted
[2019-05-18] MEDS ORDERED: ATROPINE SULFATE 0.1 MG/ML 10ML SYR IV PRN (08:16)
[2019-05-18] MEDS ORDERED: ePHEDrine sulfate 50 MG/ML AMP IV PRN (08:16)
--- NOTE | 2019-05-18 08:26 | Operative Report ---
Post Operative Report Pre & Post Diagnosis Operation Date: 05/18/19 07:15 Pre-Op Diagnosis: Left Knee Osteoarthritis Post-Op Diagnosis: Left Knee Osteoarthritis Procedure Operation Date: 05/18/19 07:15 Actual Procedures p Left Total Knee Arthroplasty utilizing [employer] journey to non-block total knee arthroplasty size 2 femur to tibia 9 polyethylene 29 oval patella- Th binta Hull DO Surgeon Saul Hull DO Fire Code Inspector Andres MOYA Estimated Blood Loss 5 Findings Consistent with Post-Op Diagnosis Patient presents with severe end-stage tricompartmental degenerative joint disease of the left knee she had no response to conservative management including physical therapy anti-inflammatories relative rest activity modification corticosteroid injections Visco supplementation times surgery is noted no evidence of eburnated bone rubbing on [id number] medial compartment large osteophyte subchondral cystic changes moderate to large effusion she is known response to conservative management Specimens Bone and cartilage Drains Medium bore Hemovac Complications none Disposition Accompanied Patient To Recovery: No Disposition: Recovery Room Indications Patient presents as a 73-year-old white female with severe end-stage DJD about the left knee no response to conservative management with physical therapy anti- inflammatories relative rest activity modifications corticosteroid injections Visco supplementation she presents for left total knee arthroplasty above intraoperative findings noted times surgery. Description of Procedure After proper prepping and draping of the left lower extremity anterior midline incision was made over the region of the extensor extensor mechanism after meticulous hemostasis was obtained and maintained in subcutaneous tissues a medial parapatellar incision was made The patella was subluxed lateralward the medial lateral gutter were cleaned from any hypertrophic synovitis and scar tissue of the distal femoral block was placed and the distal femoral osteotomy cut was made subsequently the chamfers anterior and posterior osteotomy cuts were made utilizing the 4-in-1 block the tibia was subsequently subluxed anteriorward medial and ateral meniscal remnants were excised in their entirety remnants of the anterior and posterior cruciate ligaments were excised in their entirety excellent exposure of the proximal tibia was obtained the tibial osteotomy guide was placed on the proximal tibial osteotomy cut was made once again the knee was irrigated with copious amounts of sterile saline solution the patella was subsequently everted lateralward thickened scar tissue around the patella was removed the patella was subsequently cut utilizing a freehand technique and was drilled prepared for final preparation and placement of patella socially flexion-extension gaps were checked and the equal and symmetric trials were placed to the appropriate femoral and tibial trials with poly-spacer being placed for equal flexion and extension gaps and full range of motion including extension to 0 and flexion to 140 the trial components after having been taken to recovery range of motion was subsequently removed meticulous hemostasis was obtained and maintained subsequently a knee block injection of joint cocktail including ropivacaine 0.5% 150 mg. Bupivacaine 0.5% epinephrine 1-200,030 mL's toradol 30 mg dexamethasone 4 mg ketamine 10 mg clonidine 100 micrograms normal saline solution 30 mg was infiltrated into the soft tissues of the posterior knee medial lateral gutters and periosteal synovium special attention was paid to protect neurovascular structures at all times subsequently trial components having been removed the knee was irrigated with sterile saline solution. debris was removed the proximal tibia was subsequently prepared and was made ready for the placement of the tibial component tibial component was also cemented and tamped into position the femoral component was subsequently placed and cemented in the position the patellar component was subsequently cemented in position because hemostasis once again obtained and maintained wound having been thoroughly irrigated with debridement and debridement lavage was performed as well as a medial parapatellar incision closed with #1 Vicryl in interrupted fashion subcutaneous was closed with #2 Vicryl skin was closed with skin clips. PA-C was necessary for prepping and drapping as well as wound closure of deep fascia Sub cutaneous tissue and skin and was necessary for the case. A sterile compressive dressing was placed patient was taken to recovery in stable condition of report dictated by Kurtis I attest to the content of the Intraoperative Record and any orders documented therein. Any exceptions are noted below. I attest to the content of the Intraoperative Record and any orders documented therein. Any exceptions are noted below.
--- NOTE | 2019-05-18 09:35 | XRay Report ---
XR knee LT 2V routine CLINICAL HISTORY: Surgical Post Op knee replacement COMPARISON: None. DISCUSSION: Anatomic alignment posttotal left knee arthroplasty. Could contact between prosthetic and underlying bone. Expected soft tissue postoperative change IMPRESSION: Anatomic alignment posttotal left knee arthroplasty. The above report was generated using voice recognition software. It may contain grammatical, syntax or spelling errors. Electronically signed by: Andres Mijares M.D. 05/18/2019 9:34 AM
--- NOTE | 2019-05-18 09:56 | Anesthesiology Progress Note ---
Date of Service May 18, 2019 Anesthesia Post Procedure Vital Signs Vital Signs: Temp Pulse Pulse Resp BP BP Pulse Ox 05/18/19 09:50 36.6 C 85 16 157/89 H 96 05/18/19 09:40 84 16 147/79 H 96 05/18/19 09:30 85 16 132/70 95 05/18/19 09:20 86 16 140/75 96 05/18/19 09:12 36.5 C 82 18 139/56 L 96 05/18/19 05:43 37 C 72 18 123/86 96 Pain Intensity Left Knee: Pain Intensity: 4 Transfer of Care Handoff Completed per policy Notes Mental Status: alert / awake / arousable Patient Amnestic to Procedure: Yes Nausea / Vomiting: adequately controlled Pain: adequately controlled Airway Patency, RR, SpO2: stable & adequate BP & HR: stable & adequate Hydration State: stable & adequate Neuraxial Anesthesia: was administered and sensory block is resolving Anesthetic Complications: no major complications apparent
[2019-05-18] MEDS ORDERED: LORazepam 0.5 MG TAB PO PRN (10:15)
[2019-05-18] MEDS ORDERED: PREMARIN VAG CRM 14 APPLN/30 GM TUBE PV PRN (10:15)
[2019-05-18] MEDS ORDERED: NITROGLYCERIN SL 0.4 MG/TAB TAB SL PRN (10:15)
[2019-05-18] MEDS ORDERED: KETOCONAZOLE 2% CR 15 GM TUBE EXT PRN (10:15)
[2019-05-18] MEDS ORDERED: NALOXONE HCL 0.4 MG/1 ML VIAL/CARP IV PRN (10:15)
[2019-05-18] MEDS ORDERED: NON-FORMULARY MEDICATION (Insulin Aspart U-100 1 sliding scale dose) SQ PRN (10:15)
[2019-05-18] MEDS ORDERED: MAGNESIUM HYDROXIDE SUSP 30 ML UDC PO PRN (10:15)
[2019-05-18] MEDS ORDERED: HYDROmorphone INJ 0.5 MG/0.5 ML SYR IV PRN (10:15)
[2019-05-18] MEDS ORDERED: IPRATROPIUM BROMIDE NEB SOLN 0.02% 2.5 ML VIAL INH PRN (10:15)
[2019-05-18] MEDS ORDERED: BISACODYL 10 MG SUPP PR PRN (10:15)
[2019-05-18] MEDS ORDERED: ALBUTEROL HFA 8 GM INHALER INH PRN (10:15)
[2019-05-18] MEDS ORDERED: ONDANSETRON INJ 2 MG/ML 2 ML VIAL IV PRN (10:15)
[2019-05-18] MEDS ORDERED: METOCLOPRAMIDE HCL INJ 5 MG/ML 2 ML VIAL IV PRN (10:15)
[2019-05-18] MEDS ORDERED: [UNRECOGNIZED DRUG - OTHER] SC PRN (10:15)
[2019-05-18] MEDS ORDERED: PHARMACY GLYCEMIC MGMT CONSULT PRN (11:35)
[2019-05-18] MEDS ORDERED: Nursing to Pharmacy Communication ONE (11:45)
--- NOTE | 2019-05-18 11:52 | Pharmacy Report ---
Pharmacy Glycemic Short Note 2 - Date of Service May 18, 2019 - Glycemic Short BSG Results (Last 24 hours): 05/18/19 05/18/19 05:19 09:14 POC Glucose 136 H 91 OUTPATIENT ANTIDIABETIC REGIMEN: * Novolog via V-Go system (typical total daily dose of 40 units per patient) * Novolog pen (need occasionally to supplement V-Go system) * A1c: pending ASSESSMENT: * T2 diabetic controlled at home via the V-go pump s/p left total hip replacement. Adequate A1C as of November, repeat pending. It appears steroids were ordered/removed from omnicell, but not administered. Pre and postoperative BSGs well controlled at 136 and 91 respectively. Both the nurse and I spoke with the patient who was comfortable continuing with the V-Go system and managing it. I did discuss with her that pharmacy would follow along with her BSGs and intervene if necessary. She did say she has an additional novolog pen at home that she uses occasionally to supplement the V- Go as necessary, usually diet dependant. I will hold off on ordering additional novolog at this time. PLAN FOR INPATIENT GLYCEMIC CONTROL: Pt is to manage BSGs with insulin pump per outpatient settings. * RN will have patient read and sign agreement [id number] Insulin Pump Therapy Patient Agreement. * RN will provide and explain form [id number] Flowsheet for Patient * Patient will document their insulin dose given on NS-824 which is kept at the bedside, available to caregivers upon request, and which becomes part of the permanent medical record. If at any time the patients condition evidences that he/she is not able to manage the insulin pump (i.e. frequent hypo/hyperglycemia) Pharmacy will assume glycemic control by discontinuing the pump & managing with SQ basal bolus insulin regimen for the interim.
[2019-05-18] MEDS: PRAMIPEXOLE DIHYDROCHLO 0.5 MG TAB PO SCH ×2 (12:19→21:57)
[2019-05-18] MEDS: SODIUM CHLORIDE 0.9% 1000ML 1,000 ML IV SCH ×2 (12:21→22:32)
[2019-05-18] MEDS: NovoLOG INSULIN PUMP SCH ×3 (12:28→21:33)
[2019-05-18] MEDS ORDERED: PHARMACY GLYCEMIC MGMT CONSULT STA (13:23)
[2019-05-18] MEDS: ACETAMINOPHEN 500 MG TAB PO SCH ×2 (14:10→22:08)
[2019-05-18] MEDS: OXYCODONE HCL IR 5 MG TAB (IMMEDIATE RELEASE) PO PRN ×2 (14:14→23:20)
--- NOTE | 2019-05-18 15:05 | Consultation ---
Date of Consultation May 18, 2019 Assessment & Plan (1) S/P total knee arthroplasty: Post op day# 0 S/P L TKA by Dr Kurtis CRAMER #5ml Post op pt reports some left knee discomfort -pain management per ortho -wound management per ortho -PT/OT as appropriate -DVT prophylaxis per ortho -incentive spirometry -monitor H&H for acute blood loss anemia (2) Coronary artery disease: C/P Stent, CABG x 3 in 2016 Denies CP, SOB -Off plavix since 05/11/19, per Dr Torres outpatient cardiology note on 05/11/19, feels pt can be off Plavix permanently -Continue ASA -H/O intolerance to statins -Cardiology consulted (3) Diabetes mellitus: DM II Insulin dependent on insulin pump A1c: 6.9 on 04/08/19 BSG post op 153; Pt did receive Decadron. Monitor BSGs -Continue insulin delivery system. Pt changes every 24 hours in the evening.If pt not able to manage pump, glycemic pharmacy will overtake and use basal bolus insulin regimen. -Hold metformin -Glycemic pharmacy consult (4) Chronic diastolic heart failure: -Hold lasix and re-evaluate volume status tomorrow (5) Hypertension: BP on low side at 101/63 -Hold lisinopril and re-evaluate tomorrow (6) CKD (chronic kidney disease), stage III: Baseline Cr: 1.0-1.2 -Monitor renal functions -Avoid nephrotoxic agents when possible (7) Chronic anemia: H/O Iron deficiency anemia Pre op Hgb: 11.7 on 04/08/19 -Monitor H&H -Continue iron supplement (8) Asthma: Hx Asthma Denies SOB. No wheezing -Continue Dulera, Singulair, continue albuterol prn (9) Restless leg syndrome: -Continue pramipexole DVT Prophylaxis -SCDs per ortho Disposition per primary team Follows with Dr Reid for routine care Pt was seen and care coordinated with Dr Tavarez. See addendum Pt will be followed by Dr Henriquez starting 05/19/19 Thank you for this consultation. We will follow the patient with you during their hospital stay. You can reach a member of the [facility] Team 21/04 via pager @ [phone]. Supervising Physician Co-Signing Physician Notes I have seen and examined the patient and have discussed the case with the provider above. I agree with the assessment and plan as stated. 73 yo F who is doing well post-operatively, BP slightly low so meds held appropriately. Blood glucose is within range. Appreciate glycemic pharmacist's assistance with management of insulin pump. Physical exam reveals a hemodynamically stable patient with a normal exam. L knee wrapped in a surgical dressing and drain in place. She is doing well overall. Cont management as above. DO Corby History of Present Illness Reason for Consultation: Post op medical management Attending Physician: Saul Hull DO History of Present Illness Pt is 73 y/o F with PMH CAD s/p stents, CABG x 3, chronic diastolic heart failure, LBBB, HTN, iron deficiency anemia, CKD III, DM II on insulin pump, COPD, RLS seen in medical consultation for post op medical m anagement s/p L TKA today be Dr Hull. Post op pt reports feels tired. Reports some left knee pain. Reports urinated post op and without difficulty or dysuria. Reports chronic BLE edema and feels is at baseline. Denies chills, diaphoresis, N/V/, BERRY, dizziness, vision changes, neck pain, CP, SOB, orthopnea, palpitations, cough, sore throat, choking, otalgia, rhinorrhea, abdominal pain, rashes. Allergies Allergy/AdvReac Type Severity Reaction Status Date / Time cefaclor Allergy Mild RASH Verified 05/18/19 05:33 dipyridamole Allergy Mild HIVES Verified 05/18/19 05:33 Penicillins Allergy Mild RASH Verified 05/18/19 05:33 primidone Allergy Mild RASH Verified 05/18/19 05:33 Cipro Allergy Unknown Joint pain Unverified 05/20/18 10:49 simvastatin Allergy Unknown ANAPHYLAXIS Verified 05/18/19 05:33 Sulfa (Sulfonamide Allergy Unknown RASH Verified 05/18/19 05:33 Antibiotics) bee venom protein (honey bee) Allergy Unknown Verified 05/18/19 10:42 dexlansoprazole Allergy Unknown Verified 05/18/19 10:42 [From Dexilant] ezetimibe [From Zetia] Allergy Unknown Verified 05/18/19 10:42 prednisone AdvReac Intermediate UNSURE IF Verified 05/18/19 05:33 IT AFFECTED BREATHING OR HEART cetirizine AdvReac Unknown Dizziness Verified 05/18/19 05:33 ciprofloxacin AdvReac Unknown Joint pain Verified 05/18/19 05:33 Home Medications Home Medications Medication Instructions Recorded Confirmed Type albuterol sulfate HFA 90 2 puffs INH Q6H PRN 08/17/18 05/18/19 History mcg/actuation aerosol inhaler ascorbic acid (vitamin C) 500 mg 500 mg PO QPM cap 08/17/18 05/18/19 History capsule aspirin 81 mg tablet,delayed 81 mg PO QDL 08/17/18 05/18/19 History release cholecalciferol (vitamin D3) 1,000 5,000 units PO DAILY 08/17/18 05/18/19 History unit capsule conjugated estrogens 0.625 mg/gram 1 applic VAGINAL DAILY PRN gm 08/17/18 05/18/19 History vaginal cream digestive enzymes capsule 1 cap PO QAM 08/17/18 05/18/19 History furosemide 20 mg tablet 20 mg PO QDD 08/17/18 05/18/19 History ketoconazole 2 % topical cream 1 appln TOP DAILY PRN 08/17/18 05/18/19 History latanoprost 0.005 % eye drops 1 drops OP QAM 08/17/18 05/18/19 History lisinopril 5 mg tablet 7.5 mg PO QAM 08/17/18 05/18/19 History lorazepam 0.5 mg tablet 0.5 mg PO DAILY PRN 08/17/18 05/18/19 History magnesium 400 mg (as magnesium 400 mg PO BID cap 08/17/18 05/18/19 History oxide) capsule metformin 500 mg tablet 500 mg PO BID 08/17/18 05/18/19 History montelukast 10 mg tablet 10 mg PO QPM 08/17/18 05/18/19 History multivitamin tablet 1 tab PO QAM 08/17/18 05/18/19 History novolog V-Go system 1 dose SC DIRECTED PRN 08/17/18 05/18/19 History coQ10 (ubiquinol) 200 mg PO QDL 04/21/19 05/18/19 History insulin aspart U-100 [Novolog 1 sliding scale dose SUBCUT 04/21/19 05/18/19 History U-100 Insulin aspart] USEASDIRECTD PRN ipratropium bromide 0.5 mg INHALATION Q6H PRN 04/21/19 05/18/19 History nitroglycerin 0.4 mg SUBLINGUAL DIRECTED 04/21/19 05/18/19 History polysaccharide iron complex 300 mg PO HS 04/21/19 05/18/19 History [Poly-Iron] triamcinolone acetonide [Nasacort] 2 spray INTRANASAL QAM 04/21/19 05/18/19 History levocetirizine 5 mg PO PM 05/18/19 05/18/19 History mometasone-formoterol [Dulera] 2 puff INHALATION BID 05/18/19 05/18/19 History pantoprazole 40 mg PO DAILY 05/18/19 05/18/19 History pramipexole 1 mg PO BID 05/18/19 05/18/19 History Patient History Medical History Restless leg syndrome (Chronic) Chronic anemia (Chronic) CKD (chronic kidney disease), stage III (Chronic) Chronic diastolic heart failure (Chronic) CAD (coronary artery disease) (Chronic) Lumbar spinal stenosis (Chronic) Neurogenic claudication due to lumbar spinal stenosis (Chronic) Lumbago (Chronic) Insulin dependent diabetes mellitus (Chronic) Chronic anticoagulation (Chronic) Anemia (Chronic ~09/2007) Asthma (Chronic) Coronary artery disease (Chronic) s/p multiple PCIs with BMS (pt "feels she would have an allergy to JAKE" per cardiology). s/p CABG 2015 (GALINDO-LAD, SVG-OM2, SVG-RCA) GERD (gastroesophageal reflux disease) (Chronic) Glaucoma (Chronic) Hypercholesterolemia (Chronic) Hypertension (Chronic) Bee sting allergy WASP Diabetes mellitus, type 2 IDDM -- uses VGo insulin pump at basal rate, boluses as needed for meals. Also had CGM on upper arm. Chronic diastolic CHF (congestive heart failure) LBBB (left bundle branch block) or wide IVCD per cardio. Obesity Surgical History S/P total knee arthroplasty (Chronic) 05/18/19 - L TKA by Dr Hull at [facility] History of cholecystectomy (Chronic) History of hysterectomy (Chronic) History of lumpectomy of left breast (Chronic) Hx of CABG (Chronic) 2015 [facility] X 3 VESSELS History of cardiac cath 2004 AND 2005 - [place] X3 TOTAL STENTS; 2014 [facility] X3 STENTS Hx of section Hx of left cataract extraction Hx of right cataract extraction Family History Other Coronary heart disease Hypertension Social History Preferred Language: Persian Communication Ability: Effective Beliefs That Will Affect Care: None Current Living Situation: Spouse current occupational status: retired Feels Safe at Home: Yes Smoking Status: Never smoker Do You Dip or Chew Tobacco: No ; Second Hand Exposure: Yes (SOCIALLY) ; Hx Alcohol Use: No Hx Substance Use: No Review of Systems Review of Systems: All systems reviewed & are unremarkable except as noted in HPI & below Physical Exam Physical Exam: General: no acute distress, obese Head: normocephalic, atraumatic Eyes: PERRL, EOM's intact, conjunctiva non-injected, anicteric ENT: normal inspection external ears, nose, mucous membranes moist Neck: supple, trachea midline Lungs: clear, no respiratory distress, no wheezing/rhonchi/rales CV: RRR, no murmur, 1+ pretibial edema Abd: normal BS, soft, protuberant, non-tender Ext:no calf tenderness; Left leg: rachel wrap and dressing in place and is dry, yamila in in place, bilateral pedal pushes and pulls intact, distal pulses intact, sensation to light touch intact Neuro: Pt falls asleep several times during history, awakens to voice, oriented 3, no focal deficits noted, normal affect Skin: warm, dry Results & Data Vital Signs (Past 12 Hours) Vital Signs Temp Pulse Pulse Pulse Resp BP BP 05/18/19 13:35 36.9 C 85 18 156/67 H 05/18/19 13:00 36.5 C 93 H 16 171/72 H 05/18/19 12:00 96 H 16 175/73 H 05/18/19 10:57 86 16 160/82 H 05/18/19 10:32 86 16 154/77 H 05/18/19 10:00 36.5 C 83 16 154/79 H 05/18/19 09:50 36.6 C 85 16 157/89 H 05/18/19 09:40 84 16 147/79 H 08/20/19 09:30 85 16 132/70 08/20/19 09:20 86 16 140/75 05/18/19 09:12 36.5 C 82 18 139/56 L 05/18/19 05:43 37 C 72 18 123/86 Pulse Ox 05/18/19 13:35 96 05/18/19 13:00 96 05/18/19 12:00 95 05/18/19 10:57 100 05/18/19 10:32 97 05/18/19 10:00 98 05/18/19 09:50 96 05/18/19 09:40 96 05/18/19 09:30 95 05/18/19 09:20 96 05/18/19 09:12 96 05/18/19 05:43 96
--- NOTE | 2019-05-18 16:07 | Communication Note ---
Date of Service: May 18, 2019 I was called today by the nursing staff stating that the patient had rolled out of bed. She apparently landed on her face was found that way. She had no apparent injury and had only mildly increased pain in around the knee at that time. Currently she is resting in bed using her spirometry. She has no overt complaints at this point in time. She states that any excess pain she had, has not dissipated and she has her normal surgical pain that she had prior. She denies any pain anywhere else on the lower upper extremities. She states that she was just recently up to the bathroom without difficulty. Dressings are clean, dry, and intact. Hemovac drain is functioning. There is no overt drainage noted on the dressing. Gentle range of motion of the knee feels normal and there is no laxity. She has no overt pain when doing this. Calves are soft nontender. Neurovascular appears intact. Watch for now. To new regular protocols TKA. Dr. Hull notified.
[2019-05-18] MEDS ORDERED: GLUCAGON FOR INJ 1 MG VIAL IM PRN (16:30)
[2019-05-18] MEDS ORDERED: CARBOHYDRATES FOR HYPOGLYCEMIA PO PRN (16:30)
[2019-05-18] MEDS ORDERED: DEXTROSE 50% 50 ML SYRINGE IV PRN (16:30)
[2019-05-18] MEDS ORDERED: GLUCOSE 40% GEL 15 GM TUBE PO PRN (16:30)
[2019-05-18] MEDS ORDERED: GLUCOSE 10 TABS/TUBE PO PRN (16:30)
--- NOTE | 2019-05-18 16:34 | Cardiology Consultation ---
Date of Consultation May 18, 2019 Assessment & Plan (1) S/P total knee arthroplasty: (2) CAD (coronary artery disease): Patient described stable cardiac signs and symptoms. She has long-standing history of dyslipidemia. Her most recent LDL cholesterol was 132 mg/dL, and per her outpatient cardiology note, she has been intolerant of multiple trials of statins in the past and that is why she is not on these medications. Her clopidogrel was discontinued earlier this month and she is to remain on aspirin monotherapy. Patient is a history of type 2 diabetes mellitus, and uses the V-GO insulin delivery system as an outpatient. For further help with management of her diabetes, I have consulted the [facility] hospitalist service. We will continue her prior to hospital cardiac medications. Stable cardiac signs and symptoms are noted present. History of Present Illness Attending Physician: Saul Hull, DO History of Present Illness Grace Bella is a 73 year old female seen in cardiology consultation per the request of Dr Hull for post op cardiology management. The patient's PCP is Dr Meade of [facility] primary care in [place] and Dr Last Torres of [facility]. The patient underwent left total knee replacement earlier today. When I went to see her earlier today she did finally fall asleep after having a lot of trouble due to her history of restless leg syndrome. I let her rest, and then came back to reassess her. She is feeling well now. She denies any chest discomfort or shortness of breath. She had most recently been seen by Dr. Torres in outpatient cardiology follow- up and preoperative assessment a few days ago on 05/11/2019 at which time stable cardiac signs and symptoms were noted. Her cardiac history dates back several years having had multiple percutaneous interventions with bare-metal stents. In the spring 2015 she developed angina and was found to have multivessel coronary heart disease on cardiac catheterization prompting CABG x3 with GALINDO to LAD, saphenous vein graft to OM 2, and sent his vein graft to the distal RCA. She has a known left bundle branch block. Her most recent EKG to place at [facility] dated 05/03/2019 and revealed sinus rhythm at 75 bpm with 2 noted PVCs, and nonspecific intraventricular conduction delay. EKG report questions with another may be limb lead reversal, and based on the findings of the prior EKG performed as an outpatient on 04/21/2017, I agree that there may have been limb lead reversal as the QRS complex has a positive axis noted on the 2017 EKG. Most recent transthoracic echocardiogram took place at [facility] on 04/28/2017. The report describes normal LVEF, 64%. Mild concentric left ventricular hypertrophy. Abnormal septal motion consistent with left bundle branch block. The left ventricular wall motion was noted to be otherwise normal. The valvular function was normal. Allergies Allergy/AdvReac Type Severity Reaction Status Date / Time cefaclor Allergy Mild RASH Verified 05/18/19 05:33 dipyridamole Allergy Mild HIVES Verified 05/18/19 05:33 Penicillins Allergy Mild RASH Verified 05/18/19 05:33 primidone Allergy Mild RASH Verified 05/18/19 05:33 Cipro Allergy Unknown Joint pain Unverified 05/20/18 10:49 simvastatin Allergy Unknown ANAPHYLAXIS Verified 05/18/19 05:33 Sulfa (Sulfonamide Allergy Unknown RASH Verified 05/18/19 05:33 Antibiotics) bee venom protein (honey bee) Allergy Unknown Verified 05/18/19 10:42 dexlansoprazole Allergy Unknown Verified 05/18/19 10:42 [From Dexilant] ezetimibe [From Zetia] Allergy Unknown Verified 05/18/19 10:42 prednisone AdvReac Intermediate UNSURE IF Verified 05/18/19 05:33 IT AFFECTED BREATHING OR HEART cetirizine AdvReac Unknown Dizziness Verified 05/18/19 05:33 ciprofloxacin AdvReac Unknown Joint pain Verified 05/18/19 05:33 Home Medications Home Medications Medication Instructions Recorded Confirmed Type albuterol sulfate HFA 90 2 puffs INH Q6H PRN 08/17/18 05/18/19 History mcg/actuation aerosol inhaler ascorbic acid (vitamin C) 500 mg 500 mg PO QPM cap 08/17/18 05/18/19 History capsule aspirin 81 mg tablet,delayed 81 mg PO QDL 08/17/18 05/18/19 History release cholecalciferol (vitamin D3) 1,000 5,000 units PO DAILY 08/17/18 05/18/19 History unit capsule clopidogrel 75 mg tablet 75 mg PO QDD 08/17/18 05/18/19 History conjugated estrogens 0.625 mg/gram 1 applic VAGINAL DAILY PRN gm 08/17/18 05/18/19 History vaginal cream digestive enzymes capsule 1 cap PO QAM 08/17/18 05/18/19 History furosemide 20 mg tablet 20 mg PO QDD 08/17/18 05/18/19 History ketoconazole 2 % topical cream 1 appln TOP DAILY PRN 08/17/18 05/18/19 History latanoprost 0.005 % eye drops 1 drops OP QAM 08/17/18 05/18/19 History lisinopril 5 mg tablet 7.5 mg PO QAM 08/17/18 05/18/19 History lorazepam 0.5 mg tablet 0.5 mg PO DAILY PRN 08/17/18 05/18/19 History magnesium 400 mg (as magnesium 400 mg PO BID cap 08/17/18 05/18/19 History oxide) capsule metformin 500 mg tablet 500 mg PO BID 08/17/18 05/18/19 History montelukast 10 mg tablet 10 mg PO QPM 08/17/18 05/18/19 History multivitamin tablet 1 tab PO QAM 08/17/18 05/18/19 History novolog V-Go system 1 dose SC DIRECTED PRN 08/17/18 05/18/19 History coQ10 (ubiquinol) 200 mg PO QDL 04/21/19 05/18/19 History insulin aspart U-100 [Novolog 1 sliding scale dose SUBCUT 04/21/19 05/18/19 History U-100 Insulin aspart] USEASDIRECTD PRN ipratropium bromide 0.5 mg INHALATION Q6H PRN 04/21/19 05/18/19 History nitroglycerin 0.4 mg SUBLINGUAL DIRECTED 04/21/19 05/18/19 History polysaccharide iron complex 300 mg PO HS 04/21/19 05/18/19 History [Poly-Iron] triamcinolone acetonide [Nasacort] 2 spray INTRANASAL QAM 04/21/19 05/18/19 H istory levocetirizine 5 mg PO PM 05/18/19 05/18/19 History mometasone-formoterol [Dulera] 2 puff INHALATION BID 05/18/19 05/18/19 History pantoprazole 40 mg PO DAILY 05/18/19 05/18/19 History pramipexole 1 mg PO BID 05/18/19 05/18/19 History Patient History Medical History Restless leg syndrome (Chronic) Chronic anemia (Chronic) CKD (chronic kidney disease), stage III (Chronic) Chronic diastolic heart failure (Chronic) CAD (coronary artery disease) (Chronic) Lumbar spinal stenosis (Chronic) Neurogenic claudication due to lumbar spinal stenosis (Chronic) Lumbago (Chronic) Insulin dependent diabetes mellitus (Chronic) Chronic anticoagulation (Chronic) Anemia (Chronic ~09/2007) Asthma (Chronic) Coronary artery disease (Chronic) s/p multiple PCIs with BMS (pt "feels she would have an allergy to JAKE" per cardiology). s/p CABG 2016 (GALINDO-LAD, SVG-OM2, SVG-RCA) GERD (gastroesophageal reflux disease) (Chronic) Glaucoma (Chronic) Hypercholesterolemia (Chronic) Hypertension (Chronic) Bee sting allergy WASP Diabetes mellitus, type 2 IDDM -- uses VGo insulin pump at basal rate, boluses as needed for meals. Also had CGM on upper arm. Chronic diastolic CHF (congestive heart failure) LBBB (left bundle branch block) or wide IVCD per cardio. Obesity Surgical History S/P total knee arthroplasty (Chronic) 05/18/19 - L TKA by Dr Hull at [facility] History of cholecystectomy (Chronic) History of hysterectomy (Chronic) History of lumpectomy of left breast (Chronic) Hx of CABG (Chronic) 2016 [facility] X 3 VESSELS History of cardiac cath 2004 AND 2005 - [place] X3 TOTAL STENTS; 2014 [facility] X3 STENTS Hx of section Hx of left cataract extraction Hx of right cataract extraction Family History Other Coronary heart disease Hypertension Social History Preferred Language: Spanish Communication Ability: Effective Beliefs That Will Affect Care: None Current Living Situation: Spouse current occupational status: retired Feels Safe at Home: Yes Smoking Status: Never smoker Do You Dip or Chew Tobacco: No ; Second Hand Exposure: Yes (SOCIALLY) ; Hx Alcohol Use: No Hx Substance Use: No Review of Systems Review of Systems: All systems reviewed & are unremarkable except as noted in HPI & below Physical Exam Physical Exam: Temp Pulse Resp BP Pulse Ox 36.9 C 70 16 101/63 91 05/18/19 15:05 05/18/19 15:05 05/18/19 15:05 05/18/19 15:05 05/18/19 15:05 Constitutional: WD/WN, vitals as above Respiratory: normal respiratory effort, lungs clear to auscultation Cardiovascular: RRR, no murmur, no edema Gastrointestinal (Abdomen): normal bowel sounds, soft, nontender, no hepatosplenomegaly Neurologic: PERRL, EOMI, accommodation nl, no face palsy, no dysarthria Results & Data Vital Signs (Past 12 Hours) Vital Signs Temp Pulse Pulse Pulse Resp BP BP 05/18/19 15:05 36.9 C 70 16 101/63 05/18/19 13:35 36.9 C 85 18 156/67 H 05/18/19 13:00 36.5 C 93 H 16 171/72 H 05/18/19 12:00 96 H 16 175/73 H 05/18/19 10:57 86 16 160/82 H 05/18/19 10:32 86 16 154/77 H 05/18/19 10:00 36.5 C 83 16 154/79 H 05/18/19 09:50 36.6 C 85 16 157/89 H 05/18/19 09:40 84 16 147/79 H 05/18/19 09:30 85 16 132/70 05/18/19 09:20 86 16 140/75 05/18/19 09:12 36.5 C 82 18 139/56 L 05/18/19 05:43 37 C 72 18 123/86 Pulse Ox 05/18/19 15:05 91 05/18/19 13:35 96 05/18/19 13:00 96 05/18/19 12:00 95 05/18/19 10:57 100 05/18/19 10:32 97 05/18/19 10:00 98 05/18/19 09:50 96 05/18/19 09:40 96 05/18/19 09:30 95 05/18/19 09:20 96 05/18/19 09:12 96 05/18/19 05:43 96
[2019-05-18] MEDS: CLINDAMYCIN 600 MG in DEXTROSE 5% 50 ML IV SCH ×2 (16:37→23:19)
[2019-05-18] MEDS ORDERED: LANTUS PER UNIT CHARGE SQ ONE (17:45)
[2019-05-18] MEDS: INSULIN ASPART 100 UNITS/ML 3 ML PEN SC SCH ×2 (18:42→21:57)
[2019-05-18] MEDS ORDERED: PRAMIPEXOLE DIHYDROCHLO 0.5 MG TAB PO SCH (21:00)
[2019-05-18] MEDS ORDERED: ASPIRIN 81 MG ECTAB PO SCH (21:00)
[2019-05-18] MEDS ORDERED: CLOPIDOGREL BISULFATE 75 MG TAB PO SCH (21:00)
[2019-05-18] MEDS: SENNA 8.6 MG TAB PO SCH (21:56)
[2019-05-18] MEDS: MAGNESIUM OXIDE 400 MG TAB PO SCH (21:56)
[2019-05-18] MEDS: ASCORBIC ACID 500 MG TAB PO SCH (21:57)
[2019-05-18] MEDS: MONTELUKAST SODIUM 10 MG TABLET PO SCH (21:57)
[2019-05-18] MEDS: DOCUSATE SODIUM 100 MG CAP PO SCH (21:57)
[2019-05-18] MEDS: IRON POLYSACCHARIDE COMPLEX 150 MG CAPSULE PO SCH (21:57)
[2019-05-19 06:02] LABS: Hematocrit (blood only) 26.6 % (37-47); Hemoglobin 8.7 g/dL (12.0-16.0); Mean Corpuscular Hemoglobin 29.4 pg (25-34); Mean Corpuscular Hgb Conc 32.7 g/dL (32-36); Mean Corpuscular Volume 89.9 fL (80-100); Mean Platelet Volume 9.6 fL (7.4-10.4); Platelet Count 224 K/uL (130-400); RDW Coefficient of Variation 13.6 % (11.5-14.5); RDW Standard Deviation 44.3 fL (36.4-46.3); Red Blood Count 2.96 M/uL (4.2-5.4)
[2019-05-19] MEDS: ACETAMINOPHEN 500 MG TAB PO SCH ×3 (06:16→23:22)
[2019-05-19] MEDS: OXYCODONE HCL IR 5 MG TAB (IMMEDIATE RELEASE) PO PRN ×3 (06:17→18:18)
[2019-05-19 06:26] LABS: BUN Creatinine Ratio 27.7 (10-20); Calcium 8.4 mg/dl (8.5-10.1); Creatinine Clr Calc Pharmacy 35.2 ml/min; Est GFR (African American) 49.8; Est GFR (Non-African American) 42.9; Potassium 4.9 mmol/L (3.5-5.1)
[2019-05-19 06:34] LABS: Estimated Average Glucose 151 mg/dl; Hemoglobin A1C 6.9 % (4.5-5.6)
--- NOTE | 2019-05-19 07:48 | Orthopedic Progress Note ---
Date of Service May 19, 2019 Assessment & Plan (1) Status post total left knee replacement: POD #1 s/p left TKA PT/OT dvt proph with [facility]/scd/asa bid would like OPPT at [facility] when discharged Appreciate input from Medical and Cardiac teams acute blood loss anemia- currently patient asymptomatic will cont to monitor, repeat labs in am. Subjective POD # 1 s/p Left TKA she states yesterday afternoon, she fell asleep in her hospital room and secondary to her restless leg acting up, she woke up on the floor of her hosp room. she is denying BERRY, loss of consciousness, CP/SOB, denies F/Chills. no increases in her pain in her left knee. Review of Systems Constitutional: no fever, no chills and no sweats Respiratory: no cough and no dyspnea Cardiovascular: no chest pain and no dyspnea Gastrointestinal: no abdominal pain, no nausea and no vomiting Physical Exam Physical Exam: Vital Signs Temp Pulse Pulse Pulse Resp BP Pulse Ox 05/19/19 07:00 36.4 C L 61 16 125/74 99 05/19/19 03:57 36.5 C 68 18 121/68 93 05/18/19 23:05 36.5 C 57 L 16 150/77 H 98 05/18/19 19:42 36.5 C 68 16 106/63 95 05/18/19 15:05 36.9 C 70 16 101/63 91 05/18/19 13:35 36.9 C 85 18 156/67 H 96 05/18/19 13:00 36.5 C 93 H 16 171/72 H 96 05/18/19 12:00 96 H 16 175/73 H 95 05/18/19 10:57 86 16 160/82 H 100 05/18/19 10:32 86 16 154/77 H 97 05/18/19 10:00 36.5 C 83 16 154/79 H 98 05/18/19 09:50 36.6 C 85 16 157/89 H 96 05/18/19 09:40 84 16 147/79 H 96 05/18/19 09:30 85 16 132/70 95 05/18/19 09:20 86 16 140/75 96 05/18/19 09:12 36.5 C 82 18 139/56 L 96 Intake and Output 05/18/19 05/19/19 05/19/19 22:59 06:59 14:59 Intake Total 1073.000 / 3727.00 0 254 / 3727.000 Output Total 900 / 2370 675 / 2370 Balance 173.000 / 1357.000 -421 / 1357.000 Intake: IV 1073.000 / 1827.00 0 54 / 1827.000 Cleocin 600 mg In D5w 50 ml @ 54 / 108 54 / 108 100 mls/hr IV Q8H JATIN Rx#: [id number] CLEOCIN 600 mg In 54 ml @ 100 54 / 54 mls/hr IV PREO P JATIN Rx#: [id number] Nss 1000ML 1,0 00 ml @ 100 mls/ 965.000 / 965.000 hr IV .Q10H SC H Rx#:[id number] Oral 200 / 200 Output: Urine 750 / 1550 600 / 1550 Drain Output 150 / 815 75 / 815 Left Knee Hemo vac 150 / 815 75 / 815 Other: # Unmeasured Voi ds 1 Constitutional: WD/WN, vitals as above no acute distress Musculoskeletal: left lower extremity: NVDI, calf SNT, negative chiquita sign. DP palpable, able to wiggle toes/ankle movement without difficulty. dressing clean dry and intact. Vital Signs Temp 36.4 C L 05/19/19 07:00 Pulse 61 05/19/19 07:00 Resp 16 05/19/19 07:00 BP 125/74 05/19/19 07:00 Pulse Ox 99 05/19/19 07:00 Intake & Output 05/18/19 05/19/19 05/19/19 18:59 06:59 18:59 Intake Total 2938.000 / 3727.00 0 789 / 3727.000 Output Total 1145 / 2370 1225 / 2370 Balance 1793.000 / 1357.00 0 -436 / 1357.000 Intake: IV 1238.000 / 1827.00 0 589 / 1827.000 Cleocin 600 mg In D5w 50 ml @ 54 / 108 54 / 108 100 mls/hr IV Q8H JATIN Rx#: [id number] CLEOCIN 600 mg In 54 ml @ 100 54 / 54 mls/hr IV PREO P JATIN Rx#: [id number] Lr 1,000 ml @ 15 mls/hr IV . 700 / 700 Q24H JATIN Rx#:[id number] Nss 1000ML 1,0 00 ml @ 100 mls/ 430.000 / 965.000 535 / 965.000 hr IV .Q10H SC H Rx#:[id number] IV Perioperative 1700 / 1700 Oral 200 / 200 Output: Urine 550 / 1550 1000 / 1550 Estimated Blood Loss 5 / 5 Drain Output 590 / 815 225 / 815 Left Knee Hemo vac 590 / 815 225 / 815 Other: # Unmeasured Voi ds 1 1 Results & Data Vital Signs (Past 12 Hours) Vital Signs Temp Pulse Pulse Resp BP Pulse Ox 05/19/19 07:00 36.4 C L 61 16 125/74 99 05/19/19 03:57 36.5 C 68 18 121/68 93 05/18/19 23:05 36.5 C 57 L 16 150/77 H 98 Laboratory Results Laboratory Results WBC 8.90 K/uL (4.8-10.8) 05/19/19 05:26 RBC 2.96 M/uL (4.2-5.4) L 05/19/19 05:26 Hgb 8.7 g/dL (12.0-16.0) L 05/19/19 05:26 Hct 26.6 % (37-47) L 05/19/19 05:26 MCV 89.9 fL (80-100) 05/19/19 05:26 MCH 29.4 pg (25-34) 05/19/19 05:26 MCHC 32.7 g/dL (32-36) 05/19/19 05:26 RDW Std Deviation 44.3 fL (36.4-46.3) 05/19/19 05:26 RDW Coeff of Yung 13.6 % (11.5-14.5) 05/19/19 05:26 Plt Count 224 K/uL (130-400) 05/19/19 05:26 MPV 9.6 fL (7.4-10.4) 05/19/19 05:26 PT 9.6 Seconds (9.0-12.0) 05/03/19 12:44 INR 0.9 (0.9-1.1) 05/03/19 12:44 APTT 26.2 Seconds (21.0-31.0) 05/03/19 12:44 PTT Ratio 1.0 05/03/19 12:44 Sodium 142 mmol/L (136-145) 05/19/19 05:26 Potassium 4.9 mmol/L (3.5-5.1) 05/19/19 05:26 Chloride 110 mmol/L (98-107) H 05/19/19 05:26 Carbon Dioxide 27 mmol/L (21-32) 05/19/19 05:26 Anion Gap 5.0 (3-11) 05/19/19 05:26 BUN 35 mg/dl (7-18) H 05/19/19 05:26 Creatinine 1.25 mg/dl (0.6-1.2) H 05/19/19 05:26 Est Cr Clr Drug Dosing 35.2 ml/min 05/19/19 05:26 Est GFR ( Amer) 49.8 05/19/19 05:26 Est GFR (Non-Af Amer) 42.9 05/19/19 05:26 BUN/Creatinine Ratio 27.7 (10-20) H 05/19/19 05:26 Glucose 194 mg/dl (70-99) H 05/19/19 05:26 POC Glucose 175 (70-99) H 05/18/19 20:55 Estimat Average Glucose 151 mg/dl 05/19/19 05:26 Hemoglobin A1c 6.9 % (4.5-5.6) H 05/19/19 05:26 Calcium 8.4 mg/dl (8.5-10.1) L 05/19/19 05:26 Urine Color Yellow 05/03/19 12:44 Urine Appearance Clear (Clear) 05/03/19 12:44 Urine pH 5.0 (4.5-7.5) 05/03/19 12:44 Ur Specific [place] 1.021 (1.000-1.030) 05/03/19 12:44 Urine Protein Negative (Negative) 05/03/19 12:44 Urine Glucose (UA) Negative (Negative) 05/03/19 12:44 Urine Ketones Negative (Negative) 05/03/19 12:44 Urine Blood Negative (Negative) 05/03/19 12:44 Urine Nitrite Negative (Negative) 05/03/19 12:44 Urine Bilirubin Negative (Negative) 05/03/19 12:44 Urine Urobilinogen Negative (Negative) 05/03/19 12:44 Ur Leukocyte Esterase Negative (Negative) 05/03/19 12:44 Blood Type O Positive 05/03/19 12:44 Antibody Screen NEGATIVE 05/03/19 12:44 Diagnostic Findings XR knee LT 2V routine CLINICAL HISTORY: Surgical Post Op knee replacement COMPARISON: None. DISCUSSION: Anatomic alignment post-total left knee arthroplasty. Could contact between prosthetic and underlying bone. Expected soft tissue postoperative change IMPRESSION: Anatomic alignment post-total left knee arthroplasty.
--- NOTE | 2019-05-19 08:29 | Anesthesiology Progress Note ---
Date of Service May 19, 2019 Anesthesia Post Procedure Vital Signs Vital Signs: Temp Pulse Pulse Pulse Resp BP Pulse Ox 05/19/19 07:00 36.4 C L 61 16 125/74 99 05/19/19 03:57 36.5 C 68 18 121/68 93 05/18/19 23:05 36.5 C 57 L 16 150/77 H 98 05/18/19 19:42 36.5 C 68 16 106/63 95 05/18/19 15:05 36.9 C 70 16 101/63 91 05/18/19 13:35 36.9 C 85 18 156/67 H 96 05/18/19 13:00 36.5 C 93 H 16 171/72 H 96 05/18/19 12:00 96 H 16 175/73 H 95 05/18/19 10:57 86 16 160/82 H 100 05/18/19 10:32 86 16 154/77 H 97 05/18/19 10:00 36.5 C 83 16 154/79 H 98 05/18/19 09:50 36.6 C 85 16 157/89 H 96 05/18/19 09:40 84 16 147/79 H 96 05/18/19 09:30 85 16 132/70 95 05/18/19 09:20 86 16 140/75 96 05/18/19 09:12 36.5 C 82 18 139/56 L 96 Pain Intensity Left Knee: Pain Intensity: 0 Notes Mental Status: alert / awake / arousable and participated in evaluation Patient Amnestic to Procedure: Yes Nausea / Vomiting: adequately controlled Pain: adequately controlled Airway Patency, RR, SpO2: stable & adequate BP & HR: stable & adequate Hydration State: stable & adequate Neuraxial Anesthesia: was administered and sensory block resolved Anesthetic Complications: no major complications apparent and Pt Satisfied with anesthetic care
[2019-05-19] MEDS: DOCUSATE SODIUM 100 MG CAP PO SCH ×2 (08:59→20:26)
[2019-05-19] MEDS: PROPRANOLOL HCL 60 MG LA CAP PO SCH (08:59)
[2019-05-19] MEDS: PANTOprazole 40 MG TAB PO SCH (08:59)
[2019-05-19] MEDS: PRAMIPEXOLE DIHYDROCHLO 0.5 MG TAB PO SCH ×2 (09:00→20:26)
[2019-05-19] MEDS: MAGNESIUM OXIDE 400 MG TAB PO SCH ×2 (09:00→20:25)
[2019-05-19] MEDS: CHOLECALCIFEROL 1,000 UNITS TAB PO SCH (09:00)
[2019-05-19] MEDS ORDERED: INSULIN GLARGINE SOLOSTAR 100 UNITS/ML 3 ML PEN SC ONE ×2 (09:00→19:00)
[2019-05-19] MEDS: MULTIVITAMIN TAB PO SCH (09:00)
[2019-05-19] MEDS: LATANOPROST 0.005% OP SOLN 2.5 ML BTL OP SCH (09:01)
[2019-05-19] MEDS: TRIAMCINOLONE ACET NASAL SPRAY 10.8ML BTL NAE SCH (09:01)
[2019-05-19] MEDS: ASPIRIN 81 MG ECTAB PO SCH ×2 (09:01→20:24)
[2019-05-19] MEDS: INSULIN ASPART 100 UNITS/ML 3 ML PEN SC SCH ×4 (09:06→21:24)
--- NOTE | 2019-05-19 10:45 | Pharmacy Report ---
Pharmacy Glycemic Short Note 2 - Date of Service May 19, 2019 - Glycemic Short BSG Results (Last 24 hours): 05/18/19 05/18/19 05/18/19 12:11 13:36 17:05 Glucose POC Glucose 113 H 153 H 150 H 05/18/19 05/19/19 05/19/19 20:55 05:26 08:11 Glucose 194 H POC Glucose 175 H 186 H OUTPATIENT ANTIDIABETIC REGIMEN: * Novolog via V-Go system * Novolog pen (need occasionally to supplement V-Go system) * A1c 6.9% on 05/19/19 ASSESSMENT: * T2 diabetic controlled at home via the V-go pump s/p left total hip replacement on 05/18 * It appears steroids were ordered/removed from [facility] on 05/18 , but not administered * Per previous documentation - both the nurse and another pharmacist spoke with the patient who was comfortable continuing with the V-Go system and managing it * However, V-go ran out 05/18 @ 1900 and patient was switched to basal/bolus at that time because the patient did not have V-go supplies. Plan for eventual discharge is to have the patient put the V-go on at 1900 the evening of discharge * BSG's have been elevated since the transition to basal/bolus at 175, 186 and 216 mg/dL * Will give a small dose of Lantus this AM for AM fasting >180 mg/dL. Hesitant to be aggressive with Lantus dose in the event that the patient is discharged today and pump is resumed tonight * Lunch BSG continues to increase - will therefore tighten CHO ratio PLAN FOR INPATIENT GLYCEMIC CONTROL: * Lantus 8 units SC x1 now then 36 units @ 1900 today * Novolog ACHS and 0200 * Goal range 110-140 mg/dL * Correction factor: 20 mg/dL/unit * Carb ratio: 6 g CHO/unit If at any time the patients condition evidences that he/she is not able to manage the insulin pump (i.e. frequent hypo/hyperglycemia) Pharmacy will assume glycemic control by discontinuing the pump & managing with SQ basal bolus insulin regimen for the interim.
--- NOTE | 2019-05-19 11:06 | Cardiology Progress Note ---
Date of Service May 19, 2019 Assessment & Plan (1) Status post total left knee replacement: (2) CAD (coronary artery disease): Stable cardiac signs and symptoms. Mild post operative acute blood loss anemia present that will need to be followed. Tolerated propranolol well this am. Per [facility] list pt takes this, although she does not recall this medication as being part of her routine. She is not on a statin or Zetia due to past intolerance. DVT prophylaxis: continue knee high SCDs, course of ASA 81 mg BID post op , will transition back to 81 mg daily when OK with ortho in 4-6 weeks. Subjective CC: follow up left knee replacement Subjective: Denies chest pain or shortness of breath. Had post operative knee pain earlier this am, now improved with medication. Drain still in place. Review of Systems Review of Systems: All systems reviewed & are unremarkable except as noted in HPI & below Physical Exam Physical Exam: Temp Pulse Resp BP Pulse Ox 36.4 C L 61 16 125/74 99 05/19/19 07:00 05/19/19 07:00 05/19/19 07:00 05/19/19 07:00 05/19/19 07:00 Constitutional: WD/WN, vitals as above Respiratory: normal respiratory effort, lungs clear to auscultation Cardiovascular: RRR, no murmur, no edema Gastrointestinal (Abdomen): normal bowel sounds, soft, nontender, no hepatosplenomegaly Musculoskeletal: left knee with compression bandage in place that was not removed. right leg with no edema Neurologic: PERRL, EOMI, accommodation nl, no face palsy, no dysarthria Results & Data Vital Signs (Past 12 Hours) Vital Signs Temp Pulse Pulse Resp BP Pulse Ox 05/19/19 07:00 36.4 C L 61 16 125/74 99 05/19/19 03:57 36.5 C 68 18 121/68 93 05/18/19 23:05 36.5 C 57 L 16 150/77 H 98 Laboratory Results Cardiac Enzymes 05/18/19 05/18/19 05/18/19 Range/Units 05:19 09:14 12:11 POC Glucose 136 H 91 113 H (70-99) 05/18/19 05/18/19 05/18/19 Range/Units 13:36 17:05 20:55 POC Glucose 153 H 150 H 175 H (70-99) 05/19/19 Range/Units 08:11 POC Glucose 186 H (70-99) CBC 05/19/19 Range/Units 05:26 WBC 8.90 (4.8-10.8) K/uL RBC 2.96 L (4.2-5.4) M/uL Hgb 8.7 L (12.0-16.0) g/dL Hct 26.6 L (37-47) % Plt Count 224 (130-400) K/uL Comprehensive Metabolic Panel 05/19/19 Range/Units 05:26 Sodium 142 (136-145) mmol/L Potassium 4.9 (3.5-5.1) mmol/L Chloride 110 H (98-107) mmol/L Carbon Dioxide 27 (21-32) mmol/L BUN 35 H (7-18) mg/dl Creatinine 1.25 H (0.6-1.2) mg/dl Glucose 194 H (70-99) mg/dl Calcium 8.4 L (8.5-10.1) mg/dl Intake and Output 05/18/19 05/19/19 05/19/19 22:59 06:59 14:59 Intake Total 1073.000 / 3727.000 254 / 3727.000 Output Total 900 / 2370 675 / 2370 Balance 173.000 / 1357.000 -421 / 1357.000 Intake: IV 1073.000 / 1827.000 54 / 1827.000 Cleocin 600 mg In D5w 50 ml @ 54 / 108 54 / 108 100 mls/hr IV Q8H JATIN Rx#: [id number] CLEOCIN 600 mg In 54 ml @ 100 54 / 54 mls/hr IV PREOP JATIN Rx#: [id number] Nss 1000ML 1,000 ml @ 100 mls/ 965.000 / 965.000 hr IV .Q10H JATIN Rx#:[id number] Oral 200 / 200 Output: Urine 750 / 1550 600 / 1550 Drain Output 150 / 815 75 / 815 Left Knee Hemovac 150 / 815 75 / 815 Other: # Unmeasured Voids 1 Medications Administered Current Inpatient Medications Acetaminophen (Tylenol) 1,000 mg PO Q8H JATIN Stop: 06/17/19 14:59 Last Admin: 05/19/19 06:16 Dose: 1,000 mg Documented by: Albuterol (Ventolin Hfa) 2 puffs INH Q6H PRN PRN Reason: Wheezing Stop: 06/17/19 10:14 Ascorbic Acid (Vitamin C) 500 mg PO QPM JATIN Stop: 06/17/19 20:59 Last Admin: 05/18/19 21:57 Dose: 500 mg Documented by: Aspirin (Ecotrin Ectab) 81 mg PO BID JATIN Stop: 06/18/19 08:59 Last Admin: 05/19/19 09:01 Dose: 81 mg Documented by: Bisacodyl (Dulcolax) 10 mg OK DAILY PRN PRN Reason: Constipation Stop: 06/17/19 10:14 Dextrose (Dextrose 50%) 25 - 50 ml IV UD PRN; Protocol PRN Reason: Hypoglycemia Protocol Stop: 06/17/19 16:29 Diphenhydramine HCl (Benadryl Capsule) 25 mg PO Q8H PRN PRN Reason: Itching Stop: 06/17/19 10:14 Docusate Sodium (Colace) 100 mg PO BID JATIN Stop: 06/17/19 20:59 Last Admin: 05/19/19 08:59 Dose: 100 mg Documented by: Estrogens Conjugated (Premarin Vag) 1 appln PV DAILY PRN PRN Reason: prn Stop: 06/17/19 10:14 Glucagon (Glucagen) 1 mg IM UD PRN; Protocol PRN Reason: Hypoglycemia Protocol Stop: 06/17/19 16:29 Glucose (Glucose 40%) 15 - 30 gm PO UD PRN; Protocol PRN Reason: Hypoglycemia Protocol Stop: 06/17/19 16:29 Glucose (Dex4 Glucose) 4 - 8 tabs PO UD PRN; Protocol PRN Reason: Hypoglycemia Protocol Stop: 06/17/19 16:29 Hydromorphone HCl (Dilaudid) 0.5 mg IV Q4H PRN PRN Reason: Pain Stop: 06/01/19 10:14 Insulin Aspart (Novolog Flexpen) 0 units SC ACHS [facility] Stop: 06/17/19 17:59 Last Admin: 05/19/19 09:06 Dose: 9 units Documented by: Ipratropium [place] (Atrovent 0.02% 0.5mg/2.5ml) 0.5 mg INH Q6H PRN PRN Reason: Wheezing Stop: 06/17/19 10:14 Ketoconazole (Nizoral 2%) 1 appln EXT DAILY PRN PRN Reason: FOOT RASH Stop: 05/28/19 10:14 Latanoprost (Xalatan Oph) 1 drops OP QAM JATIN Stop: 06/18/19 08:59 Last Admin: 05/19/19 09:01 Dose: 1 drops Documented by: Lorazepam (Ativan) 0.5 mg PO DAILY PRN PRN Reason: anxiety Stop: 06/17/19 10:14 Magnesium Hydroxide (Milk Of Magnesia) 30 ml PO Q6H PRN PRN Reason: Constipation Stop: 06/17/19 10:14 Magnesium Oxide (Mag-Ox) 400 mg PO BID JATIN Stop: 06/17/19 20:59 Last Admin: 05/19/19 09:00 Dose: 400 mg Documented by: Metoclopramide HCl (Reglan) 10 mg IV Q6H PRN PRN Reason: Nausea And Vomiting Stop: 06/17/19 10:14 Miscellaneous (Order Awaiting Action) 1 ea N/A QS [facility] Stop: 06/17/19 15:59 Last Admin: 05/19/19 09:01 Dose: Not Given Documented by: Miscellaneous (Order Awaiting Action) 1 ea N/A QS [facility] Stop: 06/17/19 15:59 Last Admin: 05/19/19 09:01 Dose: Not Given Documented by: Miscellaneous (Carbohydrates For Hypoglycemia) 15 - 30 gm PO UD PRN PRN Reason: Hypoglycemia Treatment Stop: 06/17/19 16:29 Miscellaneous Information (Consult Glycemic Management Pharmacy) 1 ea N/A UD PRN PRN Reason: Consult Stop: 06/17/19 11:34 Montelukast Sodium (Singulair) 10 mg PO QPM JATIN Stop: 06/17/19 20:59 Last Admin: 05/18/19 21:57 Dose: 10 mg Documented by: Multivitamins (Multivitamin Tab) 1 tab PO QAM JATIN Stop: 06/18/19 08:59 Last Admin: 05/19/19 09:00 Dose: 1 tab Documented by: Naloxone HCl (Narcan) 0.1 mg IV Q5M PRN PRN Reason: Oversedation/Resp Depression Stop: 06/17/19 10:14 Nitroglycerin (Nitrostat) 0.4 mg SL UD PRN PRN Reason: PRN Stop: 06/17/19 10:14 Ondansetron HCl (Zofran) 4 mg IV Q6H PRN PRN Reason: Nausea And Vomiting Stop: 06/17/19 10:14 Oxycodone HCl (Roxicodone Immediate Rel) 5 - 10 mg PO Q4H PRN PRN Reason: Pain Stop: 06/01/19 10:14 Last Admin: 05/19/19 10:19 Dose: 10 mg Documented by: Pantoprazole Sodium (Protonix) 40 mg PO DAILY [facility] Stop: 06/18/19 08:59 Last Admin: 05/19/19 08:59 Dose: 40 mg Documented by: Polysaccharide Iron Complex (Niferex-150 W/Vit C Cap) 300 mg PO [facility] Stop: 06/17/19 20:59 Last Admin: 05/18/19 21:57 Dose: 300 mg Documented by: Pramipexole Dihydrochloride (Mirapex) 1 mg PO BID [facility] Stop: 06/17/19 12:14 Last Admin: 05/19/19 09:00 Dose: 1 mg Documented by: Propranolol HCl (Inderal La) 60 mg PO [facility] Stop: 06/18/19 08:59 Last Admin: 05/19/19 08:59 Dose: 60 mg Documented by: Sennosides (Senokot) 17.2 mg PO [facility] Stop: 06/17/19 20:59 Last Admin: 05/18/19 21:56 Dose: 17.2 mg Documented by: Triamcinolone Acetonide (Nasacort) 2 sprays SHORTY [facility] Stop: 06/18/19 08:59 Last Admin: 05/19/19 09:01 Dose: 2 sprays Documented by: Vitamin D (Vitamin D3) 5,000 units PO DAILY [facility] Stop: 06/18/19 08:59 Last Admin: 05/19/19 09:00 Dose: 5,000 units Documented by:
--- NOTE | 2019-05-19 17:15 | Hospitalist Progress Note ---
Date of Service May 19, 2019 Assessment & Plan (1) Status post total left knee replacement: POD # 1. Doing well postop. (2) Coronary artery disease: No anginal symptoms. Continue aspirin and propranolol. (3) Hypertension: Blood pressure this morning 125/74. Continue propranolol. (4) Chronic diastolic heart failure: Compensated. (5) Asthma: Pulmonary status stable. (6) CKD (chronic kidney disease), stage III: Serum creatinine today = 1.25. Avoid NSAID's if possible. Follow. (7) Diabetes mellitus type 2 with complications: Well-controlled. Hgb A1C = 6.9. Uses insulin pump at home. Pharmacy consulted for insulin management. Fasting blood sugar today = 186. (8) Restless leg syndrome: Continue pramipexole. (9) DVT prophylaxis: Per Ortho protocol. (10) Encounter for consultation: Thank you for this consultation. We will follow the patient with you during their hospital stay. My cell # is [phone]. You can reach a member of the [facility] [place] [facility] 21/04 via pager @ [phone]. Subjective Recheck for perioperative medical management. Patient seen in their room around 1640. Having some postoperative left knee pain. Gets some relief with analgesics. Able to participate in physical therapy. Passing flatus, but no stool yet. Blood sugars running high. Review of Systems: Constitutional- no fever. Cardiac- no chest pain. Pulmonary- no cough or SOB. GI- no nausea, vomiting, diarrhea, melena, hematochezia. - no urinary symptoms. Otherwise, as noted above. Physical Exam Constitutional: no acute distress Respiratory: no respiratory distress Auscultation: lungs clear to auscultation bilaterally Cardiovascular: Rate/Rhythm: regular rate and regular rhythm Heart Sounds: no gallop, no murmur and no cardiac rub Vessels: no JVD Extremities: no calf tenderness and no edema Gastrointestinal (Abdomen): normal bowel sounds, soft, nontender, no hepatosplenomegaly Skin: no rashes, warm and dry Psychiatric: Orientation: alert and oriented x 3 Results & Data Vital Signs (Past 12 Hours) Vital Signs Temp Pulse Resp BP Pulse Ox 05/19/19 15:39 36.8 C 69 16 122/76 95 05/19/19 11:35 36.5 C 69 16 132/73 96 05/19/19 07:00 36.4 C L 61 16 125/74 99 Laboratory Results Hemoglobin 8.7. BUN 35, creatinine 1.25. Fasting blood sugar 186. Hemoglobin A1c 6.9.
[2019-05-19] MEDS: LEVOCETIRIZINE DIHYDROCHLORIDE PO SCH (20:23)
[2019-05-19] MEDS: IRON POLYSACCHARIDE COMPLEX 150 MG CAPSULE PO SCH (20:24)
[2019-05-19] MEDS: SENNA 8.6 MG TAB PO SCH (20:24)
[2019-05-19] MEDS: ASCORBIC ACID 500 MG TAB PO SCH (20:25)
[2019-05-19] MEDS: MONTELUKAST SODIUM 10 MG TABLET PO SCH (20:25)
[2019-05-20] MEDS: OXYCODONE HCL IR 5 MG TAB (IMMEDIATE RELEASE) PO PRN ×3 (00:58→18:03)
[2019-05-20] MEDS ORDERED: INSULIN ASPART 100 UNITS/ML 3 ML PEN SC ONE (02:00)
[2019-05-20 06:27] LABS: Basophils # (auto) 0.03 K/uL (0-0.2); Basophils % (auto) 0.4 %; Eosinophils # (auto) 0.16 K/uL (0-0.5); Hematocrit (blood only) 25.8 % (37-47); Hemoglobin 8.6 g/dL (12.0-16.0); Immature Granulocytes # (auto) 0.03 K/uL (0.00-0.02); Immature Granulocytes % (auto) 0.4 %; Lymphocytes # (auto) 1.43 K/uL (1.2-3.4); Lymphocytes % (auto) 17.8 %; Mean Corpuscular Hemoglobin 30.2 pg (25-34); Mean Corpuscular Hgb Conc 33.3 g/dL (32-36); Mean Corpuscular Volume 90.5 fL (80-100); Mean Platelet Volume 9.6 fL (7.4-10.4); Monocytes # (auto) 0.95 K/uL (0.11-0.59); Monocytes % (auto) 11.8 %; Neutrophils # (auto) 5.45 K/uL (1.4-6.5); Neutrophils % (auto) 67.6 %; Platelet Count 229 K/uL (130-400); RDW Standard Deviation 46.5 fL (36.4-46.3); Red Blood Count 2.85 M/uL (4.2-5.4); White Blood Count 8.05 K/uL (4.8-10.8)
[2019-05-20] MEDS: ACETAMINOPHEN 500 MG TAB PO SCH ×3 (07:00→23:23)
[2019-05-20] MEDS: TRIAMCINOLONE ACET NASAL SPRAY 10.8ML BTL NAE SCH (07:41)
[2019-05-20] MEDS: PRAMIPEXOLE DIHYDROCHLO 0.5 MG TAB PO SCH ×2 (07:42→21:01)
[2019-05-20] MEDS: PANTOprazole 40 MG TAB PO SCH (07:42)
[2019-05-20] MEDS: CHOLECALCIFEROL 1,000 UNITS TAB PO SCH (07:42)
[2019-05-20] MEDS: PROPRANOLOL HCL 60 MG LA CAP PO SCH (07:42)
[2019-05-20] MEDS: MULTIVITAMIN TAB PO SCH (07:42)
[2019-05-20] MEDS: LATANOPROST 0.005% OP SOLN 2.5 ML BTL OP SCH (07:42)
[2019-05-20] MEDS: DOCUSATE SODIUM 100 MG CAP PO SCH ×2 (07:43→21:01)
[2019-05-20] MEDS: ASPIRIN 81 MG ECTAB PO SCH ×2 (07:43→21:00)
[2019-05-20] MEDS: MAGNESIUM OXIDE 400 MG TAB PO SCH ×2 (07:43→21:00)
[2019-05-20] MEDS: INSULIN ASPART 100 UNITS/ML 3 ML PEN SC SCH ×4 (07:45→21:19)
--- NOTE | 2019-05-20 09:16 | Orthopedic Progress Note ---
Date of Service May 20, 2019 Assessment & Plan (1) Status post total left knee replacement: POD #2 s/p left TKA PT/OT dvt proph with [facility]/scd/asa bid Patient now asking to try a rehab type facility prior to returning home. Case management notified and is working on it. Will await authorization. Appreciate input from Medical and Cardiac teams. acute blood loss anemia- currently patient asymptomatic will cont to monitor. Hemoglobin appears to stabilize. Will get a repeat BMP for this morning. Subjective Postop day 2 status post left total knee arthroplasty. Patient is currently undergoing PT this morning. She states that her progress is going slowly and that she is thinking of going to a rehab facility at this time. She feels that her would not be able to take care of her. She has no other complaints at this time. Denies shortness of breath, chest pain, lightheadedness. Physical Exam Physical Exam: Incision appears benign. Calves are soft and nontender. Neurovascular intact. Toes are mobile. Results & Data Vital Signs (Past 12 Hours) Vital Signs Temp Pulse Pulse Resp BP Pulse Ox 05/20/19 06:49 36.9 C 59 L 20 145/75 H 92 05/19/19 23:33 36.7 C 65 16 149/71 H 100 Laboratory Results Laboratory Results WBC 8.05 K/uL (4.8-10.8) 05/20/19 05:55 RBC 2.85 M/uL (4.2-5.4) L 05/20/19 05:55 Hgb 8.6 g/dL (12.0-16.0) L 05/20/19 05:55 Hct 25.8 % (37-47) L 05/20/19 05:55 MCV 90.5 fL (80-100) 05/20/19 05:55 MCH 30.2 pg (25-34) 05/20/19 05:55 MCHC 33.3 g/dL (32-36) 05/20/19 05:55 RDW Std Deviation 46.5 fL (36.4-46.3) H 05/20/19 05:55 RDW Coeff of Yung 14.0 % (11.5-14.5) 05/20/19 05:55 Plt Count 229 K/uL (130-400) 05/20/19 05:55 MPV 9.6 fL (7.4-10.4) 05/20/19 05:55 Immature Gran % (Auto) 0.4 % 05/20/19 05:55 Neut % (Auto) 67.6 % 05/20/19 05:55 Lymph % (Auto) 17.8 % 05/20/19 05:55 [place] % (Auto) 11.8 % 05/20/19 05:55 Eos % (Auto) 2.0 % 05/20/19 05:55 Baso % (Auto) 0.4 % 05/20/19 05:55 Immature Gran # (Auto) 0.03 K/uL (0.00-0.02) H 05/20/19 05:55 Neut # (Auto) 5.45 K/uL (1.4-6.5) 05/20/19 05:55 Lymph # (Auto) 1.43 K/uL (1.2-3.4) 05/20/19 05:55 [place] # (Auto) 0.95 K/uL (0.11-0.59) H 05/20/19 05:55 Eos # (Auto) 0.16 K/uL (0-0.5) 05/20/19 05:55 Baso # (Auto) 0.03 K/uL (0-0.2) 05/20/19 05:55 PT 9.6 Seconds (9.0-12.0) 05/03/19 12:44 INR 0.9 (0.9-1.1) 05/03/19 12:44 APTT 26.2 Seconds (21.0-31.0) 05/03/19 12:44 PTT Ratio 1.0 05/03/19 12:44 Sodium 142 mmol/L (136-145) 05/19/19 05:26 Potassium 4.9 mmol/L (3.5-5.1) 05/19/19 05:26 Chloride 110 mmol/L (98-107) H 05/19/19 05:26 Carbon Dioxide 27 mmol/L (21-32) 05/19/19 05:26 Anion Gap 5.0 (3-11) 05/19/19 05:26 BUN 35 mg/dl (7-18) H 05/19/19 05:26 Creatinine 1.25 mg/dl (0.6-1.2) H 05/19/19 05:26 Est Cr Clr Drug Dosing 35.2 ml/min 05/19/19 05:26 Est GFR ( Amer) 49.8 05/19/19 05:26 Est GFR (Non-Af Amer) 42.9 05/19/19 05:26 BUN/Creatinine Ratio 27.7 (10-20) H 05/19/19 05:26 Glucose 194 mg/dl (70-99) H 05/19/19 05:26 POC Glucose 145 (70-99) H 05/20/19 06:42 Estimat Average Glucose 151 mg/dl 05/19/19 05:26 Hemoglobin A1c 6.9 % (4.5-5.6) H 05/19/19 05:26 Calcium 8.4 mg/dl (8.5-10.1) L 05/19/19 05:26 Urine Color Yellow 05/03/19 12:44 Urine Appearance Clear (Clear) 05/03/19 12:44 Urine pH 5.0 (4.5-7.5) 05/03/19 12:44 Ur Specific [place] 1.021 (1.000-1.030) 05/03/19 12:44 Urine Protein Negative (Negative) 05/03/19 12:44 Urine Glucose (UA) Negative (Negative) 05/03/19 12:44 Urine Ketones Negative (Negative) 05/03/19 12:44 Urine Blood Negative (Negative) 05/03/19 12:44 Urine Nitrite Negative (Negative) 05/03/19 12:44 Urine Bilirubin Negative (Negative) 05/03/19 12:44 Urine Urobilinogen Negative (Negative) 05/03/19 12:44 Ur Leukocyte Esterase Negative (Negative) 05/03/19 12:44 Hepatitis C Ab Screen Neg (Neg) 05/19/19 05:26 Blood Type O Positive 05/03/19 12:44 Antibody Screen NEGATIVE 05/03/19 12:44
[2019-05-20 09:45] LABS: BUN Creatinine Ratio 21.5 (10-20); Calcium 8.6 mg/dl (8.5-10.1); Est GFR (African American) 52.8; Est GFR (Non-African American) 45.6; Potassium 4.5 mmol/L (3.5-5.1)
--- NOTE | 2019-05-20 10:17 | Cardiology Progress Note ---
Date of Service May 20, 2019 Assessment & Plan (1) Status post total left knee replacement: post op day 2. Continue PT. Efforts are being made to look in to inpatient rehab options. (2) CAD (coronary artery disease): Stable CAD. Continue current meds. h/o statin intolerance. Intolerance to Zetia. DVT prophylaxis: SCDs, TEDs, ASA BID. Subjective CC: post op cardiology follow up;history of CAD Subjective: feeling well overall. She is concerned regarding being able to tolerated the 4 steps she needs to climb to enter her home. Hgb stable. BP stable. Review of Systems Review of Systems: All systems reviewed & are unremarkable except as noted in HPI & below Physical Exam Physical Exam: Temp Pulse Resp BP Pulse Ox 36.9 C 59 L 20 145/75 H 92 05/20/19 06:49 05/20/19 06:49 05/20/19 06:49 05/20/19 06:49 05/20/19 06:49 Constitutional: WD/WN, vitals as above Respiratory: normal respiratory effort, lungs clear to auscultation Cardiovascular: RRR, no murmur, no edema Gastrointestinal (Abdomen): normal bowel sounds, soft, nontender, no hepatosplenomegaly Musculoskeletal: left knee with clean dry and intact operative site. Neurologic: PERRL, EOMI, accommodation nl, no face palsy, no dysarthria Results & Data Vital Signs (Past 12 Hours) Vital Signs Laboratory Results CBC 05/20/19 Range/Units 05:55 WBC 8.05 (4.8-10.8) K/uL RBC 2.85 L (4.2-5.4) M/uL Hgb 8.6 L (12.0-16.0) g/dL Hct 25.8 L (37-47) % Plt Count 229 (130-400) K/uL Neut # (Auto) 5.45 (1.4-6.5) K/uL Lymph # (Auto) 1.43 (1.2-3.4) K/uL [place] # (Auto) 0.95 H (0.11-0.59) K/uL Eos # (Auto) 0.16 (0-0.5) K/uL Baso # (Auto) 0.03 (0-0.2) K/uL Comprehensive Metabolic Panel 05/20/19 Range/Units 05:52 Sodium 140 (136-145) mmol/L Potassium 4.5 (3.5-5.1) mmol/L Chloride 108 H (98-107) mmol/L Carbon Dioxide 27 (21-32) mmol/L BUN 26 H (7-18) mg/dl Creatinine 1.19 (0.6-1.2) mg/dl Glucose 164 H (70-99) mg/dl Calcium 8.6 (8.5-10.1) mg/dl Intake and Output 05/19/19 05/20/19 05/20/19 22:59 06:59 14:59 Intake Total 300 / 600 300 / 600 Output Total 50 / 100 Balance 250 / 500 300 / 500 Intake: Oral 300 / 600 300 / 600 Output: Drain Output 50 / 100 Left Knee Hemovac 50 / 100 Other: # Unmeasured Voids 1 1 Medications Administered Current Inpatient Medications Acetaminophen (Tylenol) 1,000 mg PO Q8H JATIN Stop: 06/17/19 14:59 Last Admin: 05/20/19 07:00 Dose: 1,000 mg Documented by: Albuterol (Ventolin Hfa) 2 puffs INH Q6H PRN PRN Reason: Wheezing Stop: 06/17/19 10:14 Last Admin: 05/19/19 23:43 Dose: 2 puffs Documented by: Ascorbic Acid (Vitamin C) 500 mg PO QPM JATIN Stop: 06/17/19 20:59 Last Admin: 05/19/19 20:25 Dose: 500 mg Documented by: Aspirin (Ecotrin Ectab) 81 mg PO BID JATIN Stop: 06/18/19 08:59 Last Admin: 05/20/19 07:43 Dose: 81 mg Documented by: Bisacodyl (Dulcolax) 10 mg KS DAILY PRN PRN Reason: Constipation Stop: 06/17/19 10:14 Dextrose (Dextrose 50%) 25 - 50 ml IV UD PRN; Protocol PRN Reason: Hypoglycemia Protocol Stop: 06/17/19 16:29 Diphenhydramine HCl (Benadryl Capsule) 25 mg PO Q8H PRN PRN Reason: Itching Stop: 06/17/19 10:14 Docusate Sodium (Colace) 100 mg PO BID JATIN Stop: 06/17/19 20:59 Last Admin: 05/20/19 07:43 Dose: 100 mg Documented by: Estrogens Conjugated (Premarin Vag) 1 appln PV DAILY PRN PRN Reason: prn Stop: 06/17/19 10:14 Glucagon (Glucagen) 1 mg IM UD PRN; Protocol PRN Reason: Hypoglycemia Protocol Stop: 06/17/19 16:29 Glucose (Glucose 40%) 15 - 30 gm PO UD PRN; Protocol PRN Reason: Hypoglycemia Protocol Stop: 06/17/19 16:29 Glucose (Dex4 Glucose) 4 - 8 tabs PO UD PRN; Protocol PRN Reason: Hypoglycemia Protocol Stop: 06/17/19 16:29 Hydromorphone HCl (Dilaudid) 0.5 mg IV Q4H PRN PRN Reason: Pain Stop: 06/01/19 10:14 Insulin Aspart (Novolog Flexpen) 0 units SC ACHS [facility] Stop: 06/17/19 17:59 Last Admin: 05/20/19 07:45 Dose: 7 units Documented by: Ipratropium [place] (Atrovent 0.02% 0.5mg/2.5ml) 0.5 mg INH Q6H PRN PRN Reason: Wheezing Stop: 06/17/19 10:14 Ketoconazole (Nizoral 2%) 1 appln EXT DAILY PRN PRN Reason: FOOT RASH Stop: 05/28/19 10:14 Latanoprost (Xalatan Oph) 1 drops OP QAM [facility] Stop: 06/18/19 08:59 Last Admin: 05/20/19 07:42 Dose: 1 drops Documented by: Levocetirizine (Levocetirizine Dihydrochloride) 1 ea PO QPM [facility] Stop: 06/17/19 15:59 Last Admin: 05/19/19 20:23 Dose: 1 ea Documented by: Lorazepam (Ativan) 0.5 mg PO DAILY PRN PRN Reason: anxiety Stop: 06/17/19 10:14 Last Admin: 05/19/19 16:43 Dose: 0.5 mg Documented by: Magnesium Hydroxide (Milk Of Magnesia) 30 ml PO Q6H PRN PRN Reason: Constipation Stop: 06/17/19 10:14 Magnesium Oxide (Mag-Ox) 400 mg PO BID [facility] Stop: 06/17/19 20:59 Last Admin: 05/20/19 07:43 Dose: 400 mg Documented by: Metoclopramide HCl (Reglan) 10 mg IV Q6H PRN PRN Reason: Nausea And Vomiting Stop: 06/17/19 10:14 Last Admin: 05/19/19 23:25 Dose: 10 mg Documented by: Miscellaneous (Order Awaiting Action) 1 ea N/A QS JATIN Stop: 06/17/19 15:59 Last Admin: 05/20/19 07:41 Dose: Not Given Documented by: Miscellaneous (Carbohydrates For Hypoglycemia) 15 - 30 gm PO UD PRN PRN Reason: Hypoglycemia Treatment Stop: 06/17/19 16:29 Miscellaneous Information (Consult Glycemic Management Pharmacy) 1 ea N/A UD PRN PRN Reason: Consult Stop: 06/17/19 11:34 Montelukast Sodium (Singulair) 10 mg PO QPM JATIN Stop: 06/17/19 20:59 Last Admin: 05/19/19 20:25 Dose: 10 mg Documented by: Multivitamins (Multivitamin Tab) 1 tab PO QAM [facility] Stop: 06/18/19 08:59 Last Admin: 05/20/19 07:42 Dose: 1 tab Documented by: Naloxone HCl (Narcan) 0.1 mg IV Q5M PRN PRN Reason: Oversedation/Resp Depression Stop: 06/17/19 10:14 Nitroglycerin (Nitrostat) 0.4 mg SL UD PRN PRN Reason: PRN Stop: 06/17/19 10:14 Ondansetron HCl (Zofran) 4 mg IV Q6H PRN PRN Reason: Nausea And Vomiting Stop: 06/17/19 10:14 Last Admin: 05/19/19 20:20 Dose: 4 mg Documented by: Oxycodone HCl (Roxicodone Immediate Rel) 5 - 10 mg PO Q4H PRN PRN Reason: Pain Stop: 06/01/19 10:14 Last Admin: 05/20/19 08:34 Dose: 10 mg Documented by: Pantoprazole Sodium (Protonix) 40 mg PO DAILY [facility] Stop: 06/18/19 08:59 Last Admin: 05/20/19 07:42 Dose: 40 mg Documented by: Polysaccharide Iron Complex (Niferex-150 W/Vit C Cap) 300 mg PO HS [facility] Stop: 06/17/19 20:59 Last Admin: 05/19/19 20:24 Dose: 300 mg Documented by: Pramipexole Dihydrochloride (Mirapex) 1 mg PO BID [facility] Stop: 06/17/19 12:14 Last Admin: 05/20/19 07:42 Dose: 1 mg Documented by: Propranolol HCl (Inderal La) [facility] Stop: 06/18/19 08:59 Last Admin: 05/20/19 07:42 Dose: 60 mg Documented by: Sennosides (Senokot) 17.2 mg PO HS [facility] Stop: 06/17/19 20:59 Last Admin: 05/19/19 20:24 Dose: 17.2 mg Documented by: Triamcinolone Acetonide (Nasacort) 2 sprays [facility] Stop: 06/18/19 08:59 Last Admin: 05/20/19 07:41 Dose: 2 sprays Documented by: Vitamin D (Vitamin D3) 5,000 units PO DAILY JATIN Stop: 06/18/19 08:59 Last Admin: 05/20/19 07:42 Dose: 5,000 units Documented by:
--- NOTE | 2019-05-20 14:19 | Pharmacy Report ---
Glycemic Control Progress Note - Date of Service May 20, 2019 - Scope Glycemic Pharmacist consulted for glycemic control to write orders per [facility] inpatient glycemic control protocol. - Objective Accuchecks BSG(last 24 hours):: 05/19/19 05/19/19 05/20/19 17:17 21:02 01:47 Glucose POC Glucose 138 H 271 H 206 H 05/20/19 05/20/19 05/20/19 05:52 06:42 12:16 Glucose 164 H POC Glucose 145 H 192 H HbA1c:: Hemoglobin A1c 6.9 % (4.5-5.6) H 05/19/19 05:26 - Recent Pertinent Medications The patient is currently receiving: * Basal insulin: Lantus 36 units every 24 hours * Correctional Insulin: Novolog Correction per scale ACHS Goal Range: Low 110 mg/dL - High 140 mg/dL Correction Factor: 20 mg/dL/unit * Prandial insulin: Per carb ratio of 1 unit per 6 grams CHO consumed - Outpatient Anti-Diabetic Meds V-GO BASAL RATE OF 40 UNITS 4 CLICKS FOR BREAKFAST (8 UNITS); 5 CLICKS FOR LUNCH (10 UNITS); 8 CLICKS FOR DINNER (16 UNITS) - Assessment & Plan ASSESSMENT: * See progress note from 05/18/19 for more background info, in short: * Pt receiving SQ basal bolus insulin regimen for hyperglycemia secondary to baseline DM (outpatient regimen on hold),stress/infection (POD2). * Patient is currently receiving an average of 83 units of insulin per day * 44 units of basal insulin * 39 units of prandial/correctional insulin * BSGs ranging 138 - 216 mg/dl over the past 24hrs * Changes needed to insulin regimen: * AM Fasting BSG = 145 mg/dl. This is just slightly above goal range for patient based on inpatient targets and co-morbidities. Therefore Basal insulin will be increased to home dose of 40 units * Post-prandial BSGs appear relatively controlled. The patient's correction factor is very appropriate. Carbohydrate ratio tightened slightly yesterday. Agree with this so far. * Total daily dose = ~80 units. PLAN FOR INPATIENT GLYCEMIC CONTROL: * INCREASING Lantus 40 units SQ once daily * Continuing correction factor of 20 mg/dl/unit * Continuing carb ratio of 1 unit per 6 grams CHO consumed * Continuing goal range of Low 110 mg/dL - High 140 mg/dL RECOMMENDATIONS FOR DISCHARGE: * Patient will most likely not have V-go if she goes to acute rehab. * Recommend the following regimen: * Lantus 40 units daily * Novolog 8 units with meals + CF of 1 per 25 * Please note that the plan above was derived based on current level of insulin resistance and hospital stress. These recommendations are appropriate for inpatient admission only. Plan of care upon discharge will need to be reassessed to avoid potential outpatient hypo/hyperglycemia. Thank you.
[2019-05-20] MEDS ORDERED: INSULIN GLARGINE SOLOSTAR 100 UNITS/ML 3 ML PEN SC SCH (16:30)
--- NOTE | 2019-05-20 19:31 | Hospitalist Progress Note ---
Date of Service May 20, 2019 Assessment & Plan (1) Status post total left knee replacement: POD # 2. Doing fairly well postop. (2) Coronary artery disease: No anginal symptoms. Continue aspirin and propranolol. (3) Hypertension: Blood pressure this morning 145/35. Continue propranolol. (4) Chronic diastolic heart failure: Compensated. (5) Asthma: Pulmonary status stable. (6) CKD (chronic kidney disease), stage III: Serum creatinine today = 1.19. Avoid NSAID's if possible. Follow. (7) Diabetes mellitus type 2 with complications: Well-controlled. Hgb A1C = 6.9. Uses insulin pump at home. Pharmacy consulted for insulin management. Fasting blood sugar today = 145. (8) Restless leg syndrome: Continue pramipexole. (9) DVT prophylaxis: Per Ortho protocol. (10) Encounter for consultation: Thank you for this consultation. We will follow the patient with you during their hospital stay. My cell # is [phone]. You can reach a member of the [facility] Medicine Team 21/04 via pager @ [phone]. Subjective Recheck for perioperative medical management. Patient seen in their room around 1210. visiting. Still having some postoperative left knee pain. Experiencing nausea, uncertain whether medication related or not. Passing flatus, but no stool yet. Blood sugars improved. Review of Systems: Constitutional- no fever. Cardiac- no chest pain. Pulmonary- no cough or SOB. GI- no nausea, vomiting, diarrhea, melena, hematochezia. - no urinary symptoms. Otherwise, as noted above. Physical Exam Constitutional: no acute distress Respiratory: no respiratory distress Auscultation: lungs clear to auscultation bilaterally Cardiovascular: Rate/Rhythm: regular rate and regular rhythm Heart Sounds: no gallop, no murmur and no cardiac rub Vessels: no JVD Extremities: no calf tenderness and no edema Gastrointestinal (Abdomen): normal bowel sounds, soft, nontender, no hepatosplenomegaly Skin: no rashes, warm and dry Psychiatric: Orientation: alert and oriented x 3 Results & Data Vital Signs (Past 12 Hours) Vital Signs Temp Pulse Resp BP Pulse Ox 05/20/19 15:04 36.8 C 73 18 124/82 98 05/20/19 12:00 36.5 C 58 L 18 132/77 98 Laboratory Results 05/20/19 05:55 05/20/19 05:52
[2019-05-20] MEDS: IRON POLYSACCHARIDE COMPLEX 150 MG CAPSULE PO SCH (20:59)
[2019-05-20] MEDS: SENNA 8.6 MG TAB PO SCH (20:59)
[2019-05-20] MEDS: MONTELUKAST SODIUM 10 MG TABLET PO SCH (20:59)
[2019-05-20] MEDS: ASCORBIC ACID 500 MG TAB PO SCH (21:00)
[2019-05-20] MEDS: LEVOCETIRIZINE DIHYDROCHLORIDE PO SCH (21:01)
[2019-05-21 06:30] LABS: Hemoglobin 9.2 g/dL (12.0-16.0); Mean Corpuscular Hemoglobin 29.4 pg (25-34); Mean Corpuscular Hgb Conc 32.9 g/dL (32-36); Mean Corpuscular Volume 89.5 fL (80-100); Platelet Count 219 K/uL (130-400); RDW Coefficient of Variation 13.9 % (11.5-14.5); RDW Standard Deviation 45.5 fL (36.4-46.3); Red Blood Count 3.13 M/uL (4.2-5.4); White Blood Count 7.63 K/uL (4.8-10.8)
[2019-05-21] MEDS: ACETAMINOPHEN 500 MG TAB PO SCH (07:00)
[2019-05-21] MEDS: PROPRANOLOL HCL 60 MG LA CAP PO SCH (08:29)
[2019-05-21] MEDS: DOCUSATE SODIUM 100 MG CAP PO SCH (08:29)
[2019-05-21] MEDS: MULTIVITAMIN TAB PO SCH (08:29)
[2019-05-21] MEDS: PRAMIPEXOLE DIHYDROCHLO 0.5 MG TAB PO SCH (08:29)
[2019-05-21] MEDS: CHOLECALCIFEROL 1,000 UNITS TAB PO SCH (08:29)
[2019-05-21] MEDS: PANTOprazole 40 MG TAB PO SCH (08:29)
[2019-05-21] MEDS: MAGNESIUM OXIDE 400 MG TAB PO SCH (08:29)
[2019-05-21] MEDS: ASPIRIN 81 MG ECTAB PO SCH (08:29)
[2019-05-21] MEDS: LATANOPROST 0.005% OP SOLN 2.5 ML BTL OP SCH (08:30)
[2019-05-21] MEDS: TRIAMCINOLONE ACET NASAL SPRAY 10.8ML BTL NAE SCH (08:30)
--- NOTE | 2019-05-21 08:30 | Orthopedic Progress Note ---
Date of Service May 21, 2019 Assessment & Plan (1) Status post total left knee replacement: POD # 3 s/p left TKA PT/OT dvt proph with elizabeth/scd/asa bid Appreciate input from Medical and Cardiac teams. acute blood loss anemia- currently patient asymptomatic will cont to monitor. Hgb stable. DC planning - [place] [facility] today if authorization approved. Subjective POD 3 s/p Left TKA Pt lying in bed. States she's having some pain in the operative knee due to just finishing her heel prop exercises. No other complaints. Denies SOB,CP,LH. Hoping to go to [place] [facility] if approved. Physical Exam Physical Exam: Left knee wound totally benign. No erythema. Minimal swelling. Calves soft, NT. NV intact. Results & Data Vital Signs (Past 12 Hours) Vital Signs Temp Pulse Resp BP Pulse Ox 05/21/19 07:00 36.8 C 68 16 154/87 H 96 05/20/19 23:02 36.8 C 61 16 122/62 92
[2019-05-21] MEDS: INSULIN ASPART 100 UNITS/ML 3 ML PEN SC SCH ×2 (08:32→13:32)
[2019-05-21] MEDS: OXYCODONE HCL IR 5 MG TAB (IMMEDIATE RELEASE) PO PRN ×2 (08:41→13:37)
--- NOTE | 2019-05-21 10:26 | Hospitalist Progress Note ---
Date of Service May 21, 2019 Assessment & Plan (1) Status post total left knee replacement: POD # 3. Doing well postop. (2) Coronary artery disease: No anginal symptoms. Continue aspirin. Propranolol LA 60 mg daily was on her outpatient med list and was continued here via medication reconciliation process. Propranolol was prescribed in March 2018. Patient does not recall taking it recently and review of med info over last [address] Pelayo database does not show it. Discussed with her Sales Representative [employer]- he thought that she was taking it and would like her to be on a beta hanna. Patient does not recall any problems with metoprolol in the past. Will start metoprolol succinate 25 mg daily. (3) Hypertension: Blood pressure this morning 154/75. Usually takes lisinopril 7.5 mg daily; it was held because of relatively low BP's postop. Resume lisinopril. Starting metoprolol succinate 25 mg daily as discussed above. (4) Chronic diastolic heart failure: Compensated. (5) Asthma: Pulmonary status stable. (6) CKD (chronic kidney disease), stage III: Serum creatinine 03/20 was 1.19. Avoid NSAID's if possible. Follow. (7) Diabetes mellitus type 2 with complications: Well-controlled. Hgb A1C = 6.9. Uses V-Go insulin delivery system at home. Pharmacy consulted for insulin management. Fasting blood sugar today = 167. Going to SNF and they are probably not familiar with V-Go system there. Will transfer on Lantus 40 units daily + NovoLog sliding scale AC. Patient may transition back to V-Go system when discharged to home. (8) Restless leg syndrome: Continue pramipexole. (9) DVT prophylaxis: Per Ortho protocol. (10) Encounter for consultation: Thank you for this consultation. We will follow the patient with you during their hospital stay. My cell # is [phone]. You can reach a member of the [facility] Medicine Team 21/04 via pager @ [phone]. Subjective Recheck for perioperative medical management. Patient seen in their room around 0930. Still having some postoperative left knee pain, but not quite as severe. Pain worse with PT. Nausea improved. Passing flatus, but no stool yet. Blood sugars improved. Review of Systems: Constitutional- no fever. Cardiac- no chest pain. Pulmonary- no cough or SOB. GI- no nausea, vomiting, diarrhea, melena, hematochezia. - no urinary symptoms. Otherwise, as noted above. Physical Exam Constitutional: no acute distress Respiratory: no respiratory distress Auscultation: lungs clear to auscultation bilaterally Cardiovascular: Rate/Rhythm: regular rate and regular rhythm Heart Sounds: no gallop, no murmur and no cardiac rub Vessels: no JVD Extremities: no calf tenderness and no edema Gastrointestinal (Abdomen): normal bowel sounds, soft, nontender, no hepatosplenomegaly Musculoskeletal: Extremities: extremities normal to inspection (TEDS applied) Skin: no rashes, warm and dry Psychiatric: Orientation: alert and oriented x 3 Results & Data Vital Signs (Past 12 Hours) Vital Signs Temp Pulse Resp BP Pulse Ox 05/21/19 07:00 36.8 C 68 16 154/87 H 96 05/20/19 23:02 36.8 C 61 16 122/62 92 Laboratory Results 05/21/19 06:19 05/20/19 05:52
--- NOTE | 2019-05-21 11:24 | Communication Note ---
Date of Service: May 21, 2019 Attending physician at [place] given verbal report.
--- NOTE | 2019-05-21 16:28 | Discharge Summary ---
Date of Service date of discharge: May 21, 2019 date of admission: 05-18-19 Admission HPI Per Admitting Provider Ms Bella is a 73 year old female who complains of left knee pain, presents for pre-op evaluation prior to a left total knee replacement at [facility] on 05-18-19. She presents with pain, crepitus, decreased rom and stiffness on the left side. She states that the symptoms have been chronic non-traumatic and the pain occurs constantly with intermittent worsening. Currently the patient states that the symptoms are moderate-severe. The pain is described as aching, sharp and throbbing. The symptoms occur continuously. The symptoms are aggravated by daily activities, ascending stairs, descending stairs, first steps while awake, weight bearing and walking. Grace states that the symptoms are relieved by no specific activity. In addition to left knee pain the patient is also experiencing crepitus, decreased mobility, joint pain, instability, limping, loss of motion, pain after activity and stiffness. Prior pain medications include Tylenol. Pt. is on Plavix and ASA therapy which limits her NSAID use. She has been treated with Pt. has had Visco in the past with minimal relief on the left side. She has had Pt. ambulates with a cane. Patient has had previous therapy. Principal Diagnosis left knee osteoarthritis Discharge Exam Vital Signs Temp Pulse Resp BP Pulse Ox 05/21/19 11:05 36.8 C 68 16 154/87 H 96 05/21/19 07:00 36.8 C 68 16 154/87 H 96 05/20/19 23:02 36.8 C 61 16 122/62 92 05/20/19 19:48 36.8 C 72 20 117/78 98 Intake and Output 05/21/19 05/21/19 05/21/19 06:59 14:59 22:59 Other: # Unmeasured Voids 1 Weight 82.554 kg Patient Weight 05/22/19 06:59 Weight 82.554 kg Constitutional WD/WN, vitals as above no acute distress Musculoskeletal left knee: NVDI, calf SNT, negative chiquita sign. DP palpable, able to wiggle toes/ankle movement without difficulty. DORI dressing clean dry and intact. expected post-operative bruising noted. Discharge Data Allergies Allergy/AdvReac Type Severity Reaction Status Date / Time cefaclor Allergy Mild RASH Verified 05/18/19 05:33 dipyridamole Allergy Mild HIVES Verified 05/18/19 05:33 Penicillins Allergy Mild RASH Verified 05/18/19 05:33 primidone Allergy Mild RASH Verified 05/18/19 05:33 Cipro Allergy Unknown Joint pain Unverified 05/20/18 10:49 simvastatin Allergy Unknown ANAPHYLAXIS Verified 05/18/19 05:33 Sulfa (Sulfonamide Allergy Unknown RASH Verified 05/18/19 05:33 Antibiotics) bee venom protein (honey bee) Allergy Unknown Verified 05/18/19 10:42 dexlansoprazole Allergy Unknown Verified 05/18/19 10:42 [From Dexilant] ezetimibe [From Zetia] Allergy Unknown Verified 05/18/19 10:42 prednisone AdvReac Intermediate UNSURE IF Verified 05/18/19 05:33 IT AFFECTED BREATHING OR HEART cetirizine AdvReac Unknown Dizziness Verified 05/18/19 05:33 ciprofloxacin AdvReac Unknown Joint pain Verified 05/18/19 05:33 Consultations 05/18/19 09:17 Consult Cardiology Routine 05/18/19 10:15 Consult Case Management - Discharge Planning Routine 05/18/19 13:08 Consult Hospitalist Routine Procedures Performed Operation Date: 05/18/19 07:15 Actual Procedures p Left Total Knee Arthroplasty - Saul Hull DO Ordered Studies 05/18/19 05:00 US - OR guided needle placemen Routine Hospital Course (1) Status post total left knee replacement: POD # 3 s/p left TKA PT/OT dvt proph with samantha/scd/asa bid Appreciate input from Medical and Cardiac teams. acute blood loss anemia- currently patient asymptomatic will cont to monitor. Hgb stable. DC planning - [facility] today if authorization approved. Total Time Total Time Spent Total Time Spent (In Minutes): 20 Total Time Includes: Examination of the Patient, Discharge Planning and Medication Reconciliation Discharge Plan Discharge Items Patient Disposition: Transfer Inpatient Rehab Fac Reason For Visit: Left Knee Osteoarthritis Discharge Diagnosis: Left Knee Osteoarthritis Discharge Goals: Decrease discomfort and Improve function Activity: Per 'Additional Instructions' section Weightbearing: Left weightbearing Weightbearing Comment: as tolerated with walker Non-emergency contact: Surgeon Call non-emergency contact if: your pain is not controlled, your temperature is above 101.5 and your wound has increased drainage Follow-up/Referrals: Reid,Jayleen B., DO [Primary Care Provider] - Diet: Carb Count or DM1 Addtl Provider Instructions: ACTIVITY RECOMMENDATIONS: SELF CARE INSTRUCTIONS AFTER TOTAL KNEE REPLACEMENT A. You may need to continue a physical therapy program after discharge from the hospital. There are several options available to you. Your doctor will assist you in selecting the best one for you. 1. An out-patient facility 2 to 3 times a week for therapy or home therapy. 2. Continue working on all exercises taught to you in the hospital. Your goals should be to increase bending of your knee to 90 degrees and beyond and to fully straighten your knee. B. You may progress at your own pace from walking with a walker or crutches to a cane; then to no assistive devices. C. Make walking a part of your daily routine. Be up as much as comfortable with rest periods throughout the day. Rest with leg elevation is very important. Use the ice wrap frequently for the first 3-4 weeks. D. There are no restrictions on activities. You may ride in a car, shop, participate in curtain fitter and all social activities. E. Wear the long elastic stockings (SAMANTHA hose) 20 hours a day for 2 weeks after surgery. They can be removed several times a day for laundering and for a bath. F. You may shower, no tub baths until cleared by your doctor. SPECIAL CARE INSTRUCTIONS: VERY IMPORTANT TO READ AND REVIEW A. There are a few signs you need to watch for after you are home. Call [facility] if you notice any of the followin. Increased severe knee pain. Some pain is expected especially when you exercise. 2. Increased swelling in your leg or knee; pain or swelling of the calf muscle in either lower leg. 3. Any fluid drainage from the incision. 4. Shortness of breath or chest pain. B. Please call [facility] at if you have any concerns or questions about your operation or recovery. The doctor or his nurse will return your call promptly. C. You must take antibiotics before dental work, bladder, bowel or other s urgery. Your doctor will provide you with a permanent care to carry describing this precaution. IMPORTANT: * REMEMBER TO TAKE ASPIRIN, 81 MG, TWICE DAILY FOR 4 WEEKS UNLESS OTHERWISE DIRECTED. THIS IS YOUR BLOOD THINNER. * HIGH RISK PATIENTS MAY BE PRESCRIBED A STRONGER BLOOD THINNER. THIS WILL BE PROVIDED AT DISCHARGE. * CALL IF INCREASED PAIN, REDNESS, DRAINAGE OR FEVER GREATER THAT 101. * WEAR SAMANTHA HOSE 20 HOURS PER DAY FOR 2 WEEKS. * DERMABOND Prineo- This is a mesh tape dressing that is covered with glue. It should remain in place until the incision is properly healed, usually 10-14 days. This dressing is designed to naturally slough off. You may trim the excess mesh tape as it peels off. Incision may be briefly wet in a shower. Dry immediately by blotting with a clean, dry towel. Do not bath or swim until instructed by your doctor. Do not scratch, rub, or pick at the dressing. Do not apply any topical ointments or lotions until dressing is completely removed and/or instructed by your doctor. There may be a small piece of suture material at one end of your incision. Do not pull or trim this. If it is bothersome or catching on clothing, you may cover it with a band-aid. IF INCISION IS LEAKING THROUGH DRESSING, CALL THE OFFICE . FOLLOW UP VISIT: If appointment is not already scheduled: Please call [facility] to make a follow-up appointment for 2 weeks after your surgery at . ADDITIONAL MEDICAL INSTRUCTIONS: Patient will probably not be using V-Go insulin delivery device at [place]. Check blood sugars before meals and HS. Lantus 40 units SQ daily in a.m. (to be stopped when V-Go system resumed). NovoLog with meals: blood sugar NovoLog units SQ < 80 none 81-150 8 151-200 10 201-250 12 > 250 14 Please note that current aspirin dose in 81 mg BID for VTE prophylaxis after TKA. Once she no longer needs VTE prophylaxis, please resume ASA 81 mg daily. Thank you for receiving this patient in transfer. Please call if you have any questions. Jasvir Henriquez Prescriptions: New aspirin [Ecotrin Low Strength] 81 mg Tablet,Delayed Release (Dr/Ec) 81 mg PO BID 30 Days Qty: 60 RF: 0 acetaminophen [Tylenol Extra Strength] 500 mg Tablet 1,000 mg PO Q8H 14 Days Qty: 84 RF: 0 oxycodone 5 mg Tablet 5 - 10 mg PO Q6H PRN (Reason: pain) Qty: 30 RF: 0 sennosides [Senokot] 8.6 mg Tablet 17.2 mg PO HS Qty: 30 RF: 0 metoprolol succinate 25 mg tablet extended release 24 hr 25 mg PO DAILY Qty: 30 RF: 0 Continued albuterol sulfate 90 mcg/actuation HFA aerosol inhaler 2 puffs INH Q6H PRN (Reason: Wheezing) RF: 0 ascorbic acid (vitamin C) 500 mg capsule 500 mg PO QPM RF: 0 cholecalciferol (vitamin D3) 1,000 unit capsule 5,000 units PO DAILY RF: 0 digestive enzymes capsule 1 cap PO QAM RF: 0 furosemide [Lasix] 20 mg tablet 20 mg PO QDD RF: 0 ketoconazole 2 % cream 1 appln TOP DAILY PRN (Reason: FOOT RASH) RF: 0 latanoprost [Xalatan] 0.005 % drops 1 drops OP QAM RF: 0 lisinopril 5 mg tablet 7.5 mg PO QAM RF: 0 magnesium oxide 400 mg capsule 400 mg PO BID RF: 0 metformin 500 mg tablet 500 mg PO BID RF: 0 lorazepam 0.5 mg tablet 0.5 mg PO DAILY PRN (Reason: anxiety) RF: 0 montelukast [Singulair] 10 mg tablet 10 mg PO QPM RF: 0 multivitamin tablet 1 tab PO QAM RF: 0 conjugated estrogens [Premarin] 0.625 mg/gram cream 1 applic Vaginal DAILY PRN (Reason: Vaginal Dryness) RF: 0 triamcinolone acetonide [Nasacort] 55 mcg Aerosol,[place] 2 spray INTRANASAL QAM RF: 0 coQ10 (ubiquinol) 200 mg Capsule 200 mg PO QDL RF: 0 polysaccharide iron complex [Poly-Iron] 150 mg iron Capsule 300 mg PO HS RF: 0 Novolog U-100 Insulin aspart 100 unit/mL Solution 1 sliding scale dose SUBCUT USEASDIRECTD PRN (Reason: BLOOD SUGAR) RF: 0 nitroglycerin 0.4 mg Tablet, Sublingual 0.4 mg sublingual DIRECTED RF: 0 ipratropium bromide 0.02 % Solution 0.5 mg INHALATION Q6H PRN (Reason: Wheezing) RF: 0 pramipexole 1 mg tablet 1 mg PO BID RF: 0 levocetirizine 5 mg Tablet 5 mg PO PM RF: 0 Dulera 100-5 mcg/actuation Hfa Aerosol Inhaler 2 puff INHALATION BID RF: 0 pantoprazole 40 mg Tablet,Delayed Release (Dr/Ec) 40 mg PO DAILY RF: 0 novolog V-Go system 1 dose SC DIRECTED PRN (Reason: BLOOD SUGAR) Qty: 0 RF: 0 Discontinued aspirin [Aspirin Low Dose] 81 mg tablet,delayed release (DR/EC) 81 mg PO QDL RF: 0 Stand-Alone Forms: [facility] Discharge Orders: Discharge Order (Routine); Ordered 05/21/19 Ordered By: Vitor Razo Skilled Items Patient informed of condition?: Yes DNR: No Discharge Level of Care: Skilled Communicable Disease: No Discharge Prognosis: Stable Admission Data Admit Date/Time: 05/18/19 09:14 Attending Provider: Saul Hull Admit Provider: Saul Hull Primary Care Provider: Jayleen Reid Other Providers: Marsha Nolen ; Jasvir Henriquez ; Naldo Lugo ; Willwo Crum ; Alpa Maurer ; Cherie Esteves ; Gia Lees ; Tomer Nielson ; Alvin Tovar ; Jayden Fitzpatrick ; Cortney Nova S ; Jaelyn Pandya H. ; Mera Tavarez ; Tarik Lomeli ; Juan C Wynn ; Marci Mohan ; Bobo Lira ; July Thornton ; Juan C Wu ; Yamilet Mendosa ; Mignon Porter ; Alek Atkins Service: Surgical Services Other Interventions: Discharge Summary Assessment (RN) Last Done: 05/21/19 11:05 DC Date/Time DO NOT enter until pt leaves facility: 05/21/19 14:26
== END 2019-05-21 14:26 | DRG 470 ==
LOC: ASU 04:48 → 3E 09:14